=== PATIENT | female | born 1930 | race Caucasian/White ===

== ENCOUNTER 2018-11-03 12:58 | Inpatient (IN) | payer MEDICARE, OTHER | END 2018-11-07 17:50 | disposition home or self-care (01) | LOC: JER 12:58 → JERBED 15:54 → J5S 17:53 ==

== ENCOUNTER 2018-11-09 13:19 | Inpatient (IN) | payer MEDICARE, OTHER | END 2018-11-16 14:28 | LOC: JER 13:19 → JERBED 16:47 → J8W 18:47 ==

== ENCOUNTER 2018-12-14 13:07 | Inpatient (IN) | payer OTHER ==
--- NOTE | 2018-12-14 13:11 | PDOC ---
Rapid Medical Evaluation Time Seen by Provider: 12/14/18 13:10 Medical Evaluation: Allergies Allergy/AdvReac Type Severity Reaction Status Date / Time Penicillins Allergy Verified 12/15/11 13:09 aspirin AdvReac Vomiting Verified 12/15/11 13:09 12/14/18 13:10 I have performed a brief in-person evaluation of this patient. The patient presents with a chief complaint of: back pain with known compression fxs T-11 and L3 and CKD. Denies saddle anesthesia or urinary difficulties Pertinent physical exam findings: right flank tenderness. Abd SNTND. I have ordered the following: urine, labs, oxycodone The patient will proceed to the ED for further evaluation. 12/14/18 13:12 Discharge Disposition - Diagnosis Back pain - Referrals - Patient Instructions - Post Discharge Activity
[2018-12-14] MEDS ORDERED: oxyCODONE HCL 5 MG TABLET PO ONE (13:17)
--- NOTE | 2018-12-14 13:32 | PDOC ---
History of Present Illness - General Chief Complaint: Back Pain Stated Complaint: BACK PAIN HX OF COMPRESSION FX Time Seen by Provider: 12/14/18 13:10 - History of Present Illness Initial Comments: 12/14/18 14:36 88yo F hx chronic back pain, known compression fractures T11 and L3, CKD, HTN, anemia, Afib on elliquis, and ?multiple myeloma? sent by PCP Dr. Mckeon for admission for chronic back pain. Pt was discharged from here to rehab on . Pt had new diagnosis of multiple myeloma in last admission here and was referred to oncology and nephrology for further workup but pt did not go. When asked pt's daughter Carson (translating for pt), Carson states that pt was worked up for multiple myeloma but she was not diagnosed with it. In rehab, pt did PT and back pain was managed with Acetaminophen and Gabapentin. Daughter was concerned because pt still had back pain throughout rehab, so when pt was discharged from rehab today, she called PCP Dr Mckeon and was told to come here so she brought pt here straight from rehab. Pt states back pain is exactly the same as when she left here a month ago, not worse or better. Back pain is thoracic and lumbar, R>L. Pt walks with walker. Denies falls, trauma, new back pain, neck pain, abdominal pain, numbness or tingling, saddle anesthesia, urinary incontinence or retention, bowel incontinence or retention, weakness, fever, chills, fatigue, headache, dizziness, vision changes, shortness of breath , cough, chest pain, palpitations, leg swelling, blood in stool, diarrhea, constipation, nausea, vomiting, dysuria, hematuria, confusion. Past History - Past Medical History Allergies/Adverse Reactions: Allergies Allergy/AdvReac Type Severity Reaction Status Date / Time Penicillins Allergy Verified 12/14/18 13:14 aspirin AdvReac Vomiting Verified 12/14/18 13:14 Home Medications: Ambulatory Orders Pantoprazole Sodium 40 mg PO DAILY #30 tablet. 11/09/18 Acetaminophen [Tylenol .Regular Strength -] 650 mg PO Q6HPO PRN tablet Apixaban [Eliquis -] 2.5 mg PO BID tablet 11/16/18 Calcitonin-[place] [Miacalcin [place] -] 1 spray NS DAILY spray.pump 11/16/18 Gabapentin [Neurontin -] 100 mg PO TID capsule 11/16/18 Pantoprazole Sodium [Protonix] 40 mg PO DAILY 12/14/18 traMADol HCL [Ultram] 50 mg PO Q8H 12/14/18 Anemia: Yes (blood transfusions every 3wks) Cardiac Disorders: Yes COPD: No CHF: Yes Diabetes: No Dialysis: Yes (last episode one month ago) HTN: Yes Hypercholesterolemia: No Other medical history: compression fx - Surgical History Appendectomy: Yes Cholecystectomy: Yes - Reproductive History Cervical CA: No Dysfunctional Uterine Bleeding: No Ectopic : No Endometrial CA: No Polycystic Ovaries: No Tubal Ligation: No - Suicide/Smoking/Psychosocial Hx Smoking Status: No Smoking History: Never smoked Have you smoked in the past 12 months: No Number of Cigarettes Smoked Daily: 0 If you are a former smoker, when did you quit?: n Information on smoking cessation initiated: No Hx Alcohol Use: No Drug/Substance Use Hx: No Substance Use Type: None Hx Substance Use Treatment: No (occasional drinker) Review of Systems - Review of Systems Comments:: 12/14/18 14:36 Constitutional: Negative for chills, fever, fatigue. HENT: Negative for sore throat, rhinorrhea, congestion. Eyes: Negative for visual disturbance. Respiratory: Negative for shortness of breath, cough, and wheezing. Cardiovascular: Negative for chest pain, palpitations, and leg swelling. Gastrointestinal: Negative for abdominal pain, blood in stool, constipation, diarrhea, nausea, and vomiting. Genitourinary: Negative for dysuria, flank pain, and hematuria. Musculoskeletal: Positive for back pain, R>L. Negative for myalgias and neck pain. Skin: Negative for rash. Neurological: Negative for light-headedness, dizziness, syncope, weakness, numbness and headaches. Psychiatric/Behavioral: Negative for behavioral problems and confusion. *Physical Exam - Vital Signs Last Vital Signs Temp Pulse Resp BP Pulse Ox 98.4 F 82 19 107/42 L 97 12/14/18 13:12 12/14/18 13:12 12/14/18 13:12 12/14/18 13:12 12/14/18 13:12 - Physical Exam Comments: 12/14/18 14:36 Gen: Alert, NAD, comfortable-appearing. HEENT: PERRL, EOMI, MMM, NCAT. No conjunctival pallor. Sclera are non-icteric. CV: Regular rate and rhythm. No murmurs, rubs, or gallops. PULM: No resp distress. CTAB, no wheezes, rales, or rhonchi. ABD: soft, NT/ND, no rebound tenderness or guarding, +R CVA tenderness. BACK: No TTP of c/t/l-spine. No step-offs or deformities. MSK: No bony deformities. 2+ pulses in all extremities. NEURO: AAOx3. PERRL. CN 2-12 intact. 5/5 strength in all extremities. Sensation to light touch intact in all extremities. No abnormal nystagmus. EXTREMITIES: No cyanosis. No clubbing. +b/l edema. No calf tenderness. PSYCH: Normal mood and thought pattern. SKIN: Warm and dry. Normal capillary refill. No rashes. No jaundice. ED Treatment Course - LABORATORY CBC & Chemistry Diagram: 12/16/18 07:49 12/16/18 07:49 Medical Decision Making - Medical Decision Making 12/14/18 14:36 88yo F hx chronic back pain, known compression fractures T11 and L3, CKD, HTN, anemia, Afib on elliquis, and ?multiple myeloma? sent by PCP Dr. Mckeon for admission for chronic back pain. Pt was discharged from here to rehab on . Pt had new diagnosis of multiple myeloma in last admission here and was referred to oncology and nephrology for further workup but pt did not go. When asked pt's daughter Carson (translating for pt), Carson states that pt was worked up for multiple myeloma but she was not diagnosed with it. In rehab, pt did PT and back pain was managed with Acetaminophen and Gabapentin. Daughter was concerned because pt still had back pain throughout rehab, so when pt was discharged from rehab today, she called PCP Dr Mckeon and was told to come here so she brought pt here straight from rehab. Pt states back pain is exactly the same as when she left here a month ago, not worse or better. Back pain is thoracic and lumbar, R>L. Pt walks with walker. Denies falls, trauma, new back pain, neck pain, abdominal pain, numbness or tingling, saddle anesthesia, urinary incontinence or retention, bowel incontinence or retention, weakness, fever, chills, fatigue, headache, dizziness, vision changes, shortness of breath , cough, chest pain, palpitations, leg swelling, blood in stool, diarrhea, constipation, nausea, vomiting, dysuria, hematuria, confusion. Vital signs reviewed. Afebrile. BP 107/42 (hypotensive at baseline, last 11/16/18 80/48). +R CVA tenderness, neurologically intact. Oxycodone 5 given by RME. Pt states it helped a bit. Most likely chronic pain. No red flags for cauda equina, spinal abscess, new compression fx, AAA, AoD. Due to CVA tenderness, consider UTI/pyelo or renal stone and obtain UA/UC. Due to hx of anemia, check H/H. Due to hx CKD, check CMP. [facility] from [facility] reviewed. Of note, H/H 8.5/26.3 (last 8.1/24.4 on 11/15/18), Cr 4.2 (last 4.3 on 11/15/18). Pending CMP, UA/UC. Spoke with Dr. Mckeon - consult geospatial imagery intelligence analyst and admit to Dr. Mckeon after K and Na return. 12/14/18 14:43 CMP reviewed. K 4.2, Na [address] Mckeon. *DC/Admit/Observation/Transfer Diagnosis at time of Disposition: Back pain - Discharge Dispostion Condition at time of disposition: Stable Decision to Admit order: Yes - Referrals - Patient Instructions - Post Discharge Activity
[2018-12-14] MEDS ORDERED: oxyCODONE HCL 5 MG TABLET ONE (14:08)
[2018-12-14 14:11] LABS: BASO % 0.7 % (0-2.0); EOS % 1.7 % (0-4.5); HEMATOCRIT 26.3 % (32.4-45.2); HEMOGLOBIN 8.5 GM/dL (10.7-15.3); LYMPH % 33.7 % (8-40); MCH 31.4 pg (25.7-33.7); MCHC 32.4 g/dl (32.0-36.0); MEAN CELL VOLUME 96.8 fl (80-96); MEAN PLT VOLUME 7.8 fl (7.5-11.1); MONO % 9.2 % (3.8-10.2); NEUT % 54.7 % (42.8-82.8); PLATELET COUNT 152 K/MM3 (134-434); RBC 2.71 M/mm3 (3.60-5.2); RDW 22.5 % (11.6-15.6); WHITE BLOOD COUNT 7.7 K/mm3 (4.0-10.0)
[2018-12-14 14:41] LABS: ALBUMIN 3.6 g/dl (3.4-5.0); BILIRUBIN,TOTAL 0.5 mg/dL (0.2-1); BLOOD UREA NITROGEN 44.8 mg/dL (7-18); CALCIUM 9.4 mg/dL (8.5-10.1); CREATININE 4.2 mg/dL (0.55-1.3); POTASSIUM 4.2 mmol/L (3.5-5.1); TOT PROT 6.8 g/dl (6.4-8.2)
--- NOTE | 2018-12-14 14:56 | PDOC ---
Attending Attestation - Resident Resident Name: Hilary Jiang - ED Attending Attestation I have performed the following: I have examined & evaluated the patient, The case was reviewed & discussed with the resident, I agree w/resident's findings & plan, Exceptions are as noted - HPI HPI: 12/14/18 15:26 88y F hx of compersion fractures, ckd, htn, anemia, afib on eliquis, multiple myeloma, presents from rehab presents with persistent back pain. Pt was in the hospital recently and was dc to rehab but has been having persistent pain so was sent by PMD back to ED for pain management. Pt taking tylenol/gabapentin without significant improvement. Pt johan any fever/chills, n/v, numbness/ tingling/weakness, urinary or bowel incontinence, no recent falls or injuries. on exam, pt in n odistress back exam noted for mild ttp, w/o stepoffs abd exam soft nontender no red flags or signs of cord compression will admit per pmd for further pain control - Physicial Exam PE: 12/16/18 16:05 see above - Medical Decision Making 12/16/18 16:05 see above
[2018-12-14 17:48] VITALS: BMI 25.7
[2018-12-14 18:56] LABS: ANISOCYTOSIS 3+; MACROCYTOSIS 1+
[2018-12-14 18:57] LABS: PLATELET ESTIMATE ADEQUATE
[2018-12-14] MEDS: traMADol HCL 50 MG TABLET PO PRN (22:00)
[2018-12-14] MEDS: GABAPENTIN 100 MG CAPSULE (FP) PO SCH (22:00)
[2018-12-14] MEDS: APIXABAN 2.5 MG TABLET PO SCH (22:00)
[2018-12-14 22:49] LABS: EPI CELLS 5.7 /HPF (0-5/HPF); HYALINE CASTS 0 /lpf (0-8); URINE APPEARANCE CLOUDY; URINE BACTERIA 54.9 /hpf (NEGATIVE); URINE BILIRUBIN NEGATIVE (NEGATIVE); URINE COLOR YELLOW; URINE GLUCOSE (UA) 1+ (NEGATIVE); URINE KETONE NEGATIVE (NEGATIVE); URINE LEUK ESTERASE NEGATIVE (NEGATIVE); URINE NITRITE NEGATIVE (NEGATIVE); URINE PROTEIN 2+ (NEGATIVE); URINE RBC 2 /hpf (0-4); URINE UROBILINOGEN 0.2 mg/dL (0.2-1.0); URINE WBC 1 /hpf (0-5)
[2018-12-15] MEDS: traMADol HCL 50 MG TABLET PO PRN (06:02)
[2018-12-15] MEDS: GABAPENTIN 100 MG CAPSULE (FP) PO SCH ×3 (06:03→22:29)
[2018-12-15] MEDS ORDERED: ACETAMINOPHEN 325 MG TABLET (FP) PO PRN (09:10)
--- NOTE | 2018-12-15 09:10 | HP ---
Admitting History and Physical - Primary Care Physician PCP: Antoni Mckeon - Admission Chief Complaint: WORSENING ANEMIA/WEAKNESS History of Present Illness: 88 Y/O FEMALE ESRD NOT ON HD, HERE WITH WORSENING ANEMIA, SPINAL COMPRESSION FRACTURES, UNSTEADY GAIT, History Source: Medical Record - Past Medical History Cardiovascular: Yes: HTN Gastrointestinal: Yes: GERD Renal/: Yes: Renal Inusuff ...: No Heme/Onc: Yes: Anemia - Smoking History Smoking history: Never smoked Have you smoked in the past 12 months: No Aproximately how many cigarettes per day: 0 If you are a former smoker, when did you quit?: n - Alcohol/Substance Use Hx Alcohol Use: No Home Medications - Allergies Allergies/Adverse Reactions: Allergies Allergy/AdvReac Type Severity Reaction Status Date / Time Penicillins Allergy Verified 12/14/18 13:14 aspirin AdvReac Vomiting Verified 12/14/18 13:14 - Home Medications Home Medications: Ambulatory Orders Pantoprazole Sodium 40 mg PO DAILY #30 tablet. 11/09/18 Acetaminophen [Tylenol .Regular Strength -] 650 mg PO Q6HPO PRN tablet Apixaban [Eliquis -] 2.5 mg PO BID tablet 11/16/18 Calcitonin-[place] [Miacalcin [place] -] 1 spray NS DAILY spray.pump 11/16/18 Gabapentin [Neurontin -] 100 mg PO TID capsule 11/16/18 Pantoprazole Sodium [Protonix] 40 mg PO DAILY 12/14/18 traMADol HCL [Ultram] 50 mg PO Q8H 12/14/18 Review of Systems - Review of Systems Constitutional: reports: Lethargy, Weakness Eyes: reports: No Symptoms HENT: reports: No Symptoms Neck: reports: No Symptoms Cardiovascular: reports: No Symptoms Respiratory: reports: No Symptoms Gastrointestinal: reports: No Symptoms Genitourinary: reports: No Symptoms Musculoskeletal: reports: Back Pain, Decreased ROM, Joint Pain, Muscle Pain, Muscle Weakness Integumentary: reports: Rash Neurological: reports: Pre-Existing Deficit, Weakness Physical Examination Vital Signs: Vital Signs Temperature 97.7 F 12/15/18 05:38 Pulse Rate 69 12/15/18 05:38 Respiratory Rate 18 12/15/18 05:38 Blood Pressure 109/50 L 12/15/18 05:38 O2 Sat by Pulse Oximetry (%) 95 12/14/18 21:00 Constitutional: Yes: Moderate Distress Cardiovascular: Yes: Regular Rate and Rhythm Respiratory: Yes: WNL Gastrointestinal: Yes: Soft Renal/: Yes: Other Musculoskeletal: Yes: Back Pain, Muscle Pain, Muscle Weakness Edema: Yes Edema: LLE: 1+, RLE: 1+ Peripheral Pulses WNL: Yes Integumentary: Yes: WNL Wound/Incision: Yes: Clean/Dry Neurological: Yes: Pre-Existing Deficit, Unsteady Gait, Weakness ...Motor Strength: LLE, RLE Psychiatric: Yes: Other Labs: CBC, BMP 12/14/18 13:49 12/14/18 13:49 Problem List - Problems (1) Back pain Code(s): M54.9 - DORSALGIA, UNSPECIFIED Qualifiers: (2) Anemia Code(s): D64.9 - ANEMIA, UNSPECIFIED (3) Chronic kidney disease Code(s): N18.9 - CHRONIC KIDNEY DISEASE, UNSPECIFIED (4) Compression fracture Code(s): IBR7308 - (5) Compression fracture of body of thoracic vertebra Code(s): S22.000A - WEDGE COMPRESSION FRACTURE OF UNSP THORACIC VERTEBRA, INIT (6) Intractable back pain Code(s): M54.9 - DORSALGIA, UNSPECIFIED (7) Osteopenia Code(s): M85.80 - OT DISRD OF BONE DENSITY AND STRUCTURE, UNSPECIFIED SITE (8) Paroxysmal A-fib Code(s): I48.0 - PAROXYSMAL ATRIAL FIBRILLATION Assessment/Plan START CALCITONIN NASAL SPRAY FOR PAIN/COMPRESSION FRACTURE REPAIR TRAMADOL PRN PROCRIT SQ RENAL EVAL PT EVAL OOB TO CHAIR
[2018-12-15] MEDS ORDERED: PT OWN MED DRAWER 7, Y5N ONE ×4 (09:34→22:25)
[2018-12-15] MEDS: APIXABAN 2.5 MG TABLET PO SCH ×2 (09:37→22:29)
[2018-12-15] MEDS: LIDOCAINE 5% TOPICAL PATCH TP SCH (09:37)
[2018-12-15] MEDS: PANTOPRAZOLE 40 MG TABLET (FP) PO SCH (09:37)
[2018-12-15] MEDS: CALCIUM 250MG/VIT-D 125 UNITS 1 COMBO TABLET PO SCH ×2 (12:33→22:29)
[2018-12-15] MEDS: CALCITONIN - SALMON SYNTHETIC 200 UNITS/SPRAY NS SCH (12:34)
--- NOTE | 2018-12-15 14:05 | CONSULT ---
Consult Consult Specialty:: Nephrology Reason for Consultation:: CKD - History of Present Illness Chief Complaint: weakness History of Present Illness: Pt is an 88 year old female with pmhx of ckd, anemia, spinal fractures and unsteady gait who was sent in for weakness and worsening anemia. She complains of back pain and difficulty walking. She has appetite. She denies dysuria or hematuria. She denies fevers or chills. SHe denies shortness of breath. - History Source History Provided By: Patient, Medical Record - Past Medical History Cardio/Vascular: Yes: HTN Gastrointestinal: Yes: GERD Renal/: Yes: Renal Inusuff ...: No - Alcohol/Substance Use Hx Alcohol Use: No - Smoking History Smoking history: Never smoked Have you smoked in the past 12 months: No Aproximately how many cigarettes per day: 0 If you are a former smoker, when did you quit?: n Home Medications - Allergies Allergies/Adverse Reactions: Allergies Allergy/AdvReac Type Severity Reaction Status Date / Time Penicillins Allergy Verified 12/14/18 13:14 aspirin AdvReac Vomiting Verified 12/14/18 13:14 - Home Medications Home Medications: Ambulatory Orders Pantoprazole Sodium 40 mg PO DAILY #30 tablet. 11/09/18 Acetaminophen [Tylenol .Regular Strength -] 650 mg PO Q6HPO PRN tablet Apixaban [Eliquis -] 2.5 mg PO BID tablet 11/16/18 Calcitonin-[place] [Miacalcin [place] -] 1 spray NS DAILY spray.pump 11/16/18 Gabapentin [Neurontin -] 100 mg PO TID capsule 11/16/18 Pantoprazole Sodium [Protonix] 40 mg PO DAILY 12/14/18 traMADol HCL [Ultram] 50 mg PO Q8H 12/14/18 Family Disease History - Family Disease History Family History: Denies Review of Systems - Review of Systems Constitutional: reports: Malaise Eyes: reports: No Symptoms HENT: reports: No Symptoms Neck: reports: No Symptoms Cardiovascular: reports: No Symptoms. denies: Edema Respiratory: reports: SOB on Exertion Gastrointestinal: reports: No Symptoms Genitourinary: reports: No Symptoms Musculoskeletal: reports: Back Pain Integumentary: reports: No Symptoms Neurological: reports: No Symptoms Endocrine: reports: No Symptoms Hematology/Lymphatic: reports: No Symptoms Psychiatric: reports: No Symptoms Physical Exam Vital Signs: Vital Signs Temperature 97.7 F 12/15/18 05:38 Pulse Rate 94 H 12/15/18 10:00 Respiratory Rate 20 12/15/18 10:00 Blood Pressure 103/53 L 12/15/18 10:00 O2 Sat by Pulse Oximetry (%) 95 12/14/18 21:00 Constitutional: Yes: Calm Eyes: Yes: Conjunctiva Clear HENT: Yes: Atraumatic Neck: Yes: Supple Cardiovascular: Yes: S1, S2 Respiratory: Yes: CTA Bilaterally Gastrointestinal: Yes: Soft Renal/: Yes: WNL Musculoskeletal: Yes: Back Pain Edema: No Neurological: Yes: Oriented Psychiatric: Yes: Oriented Labs: CBC, BMP 12/14/18 13:49 12/14/18 13:49 Laboratory Tests 11/30/11 11/04/18 11/11/18 06:00 09:58 07:15 WBC Hgb Potassium BUN Creatinine ALL Screen Negative c-ANCA <1:20 Proteinase 3 (PR3) <3.5 p-ANCA <1:20 Atypical p-ANCA <1:20 Myeloperoxidase Ab <9.0 Double Strand DNA Ab <1 Complement C3 144 Free Lambda LC, Quant 42226.6 H 12/14/18 12/14/18 13:49 13:49 WBC 7.7 Hgb 8.5 L Potassium 4.2 BUN 44.8 H Creatinine 4.2 H ALL Screen c-ANCA Proteinase 3 (PR3) p-ANCA Atypical p-ANCA Myeloperoxidase Ab Double Strand DNA Ab Complement C3 Free Lambda LC, Quant Problem List - Problems (1) Back pain Code(s): M54.9 - DORSALGIA, UNSPECIFIED Qualifiers: (2) Anemia Code(s): D64.9 - ANEMIA, UNSPECIFIED (3) Chronic kidney disease Code(s): N18.9 - CHRONIC KIDNEY DISEASE, UNSPECIFIED (4) Compression fracture Code(s): QKL7996 - Assessment/Plan Current Medications Generic Name Dose Route Start Last Admin Trade Name Freq PRN Reason Stop Dose Admin Acetaminophen 650 mg 12/15/18 09:10 Tylenol - PO Q6H PRN FEVER Acetaminophen 1,000 mg 12/15/18 09:10 Ofirmev Injection - IVPB Q6H PRN PAIN LEVEL 6-10 Amitriptyline HCl 10 mg 12/15/18 22:00 Elavil - PO HS HARRY Apixaban 2.5 mg 12/14/18 22:00 12/15/18 09:37 Eliquis - PO 2.5 mg BID HARRY Administration Calcitonin 1 spray 12/15/18 10:00 12/15/18 12:34 Miacalcin [place] - NS 1 spray DAILY HARRY Administration Calcium/Vitamin D 1 tab 12/15/18 10:00 12/15/18 12:33 Oscal 250 Mg+D - PO 1 tab BID HARRY Administration Gabapentin 100 mg 12/14/18 22:00 12/15/18 06:03 Neurontin - PO 100 mg TID HARRY Administration Lidocaine 1 patch 12/15/18 10:00 12/15/18 09:37 Lidoderm Patch - TP 1 patch DAILY HARRY Administration Miscellaneous 1 each 12/15/18 22:00 Lidoderm Patch Removal MC DAILY@2200 HARRY Pantoprazole Sodium 40 mg 12/15/18 10:00 12/15/18 09:37 Protonix - PO 40 mg DAILY HARRY Administration Laboratory Tests 11/11/18 07:15 Free [place] LC, Quant 18.9 Free Lambda LC, Quant 63142.6 H Free [place]/Lambda Ratio 0.00 L Impression 1. CKD 2. anemia 3. HTN 4. GERD 5. fatigue 6. back pain r/o compression fracture 7. r/o myeloma - elevated lambda chains Plan - will give procrit - renal function stable - no indication for HD - heme follow up for elevated lambda, r/o myeloma - pain control/rehab - avoid nsaids - discussed with family - renal diet - will follow prn
[2018-12-15] MEDS ORDERED: EPOETIN ALFA 10,000 UNIT/1 ML VIAL SQ ONE (14:15)
[2018-12-15] MEDS: AMITRIPTYLINE HCL 10 MG TABLET (FP) PO SCH (22:29)
[2018-12-15] MEDS: LIDOCAINE PATCH REMOVAL MC SCH (22:31)
[2018-12-16] MEDS: GABAPENTIN 100 MG CAPSULE (FP) PO SCH ×3 (07:04→21:18)
[2018-12-16 08:12] LABS: HEMATOCRIT 22.9 % (32.4-45.2); HEMOGLOBIN 7.5 GM/dL (10.7-15.3); MCH 31.6 pg (25.7-33.7); MCHC 32.8 g/dl (32.0-36.0); MEAN CELL VOLUME 96.6 fl (80-96); PLATELET COUNT 128 K/MM3 (134-434); RBC 2.38 M/mm3 (3.60-5.2); RDW 23.2 % (11.6-15.6); WHITE BLOOD COUNT 4.6 K/mm3 (4.0-10.0)
[2018-12-16 08:24] LABS: CALCIUM 9.1 mg/dL (8.5-10.1); CREATININE 4.3 mg/dL (0.55-1.3); POTASSIUM 3.6 mmol/L (3.5-5.1)
[2018-12-16 08:28] LABS: IRON SERUM 121 ug/dL (50-175); TOTAL IRON BINDING CAPACITY 171 ug/dL (250-450)
[2018-12-16] MEDS ORDERED: PT OWN MED DRAWER 7, Y5N ONE (09:08)
[2018-12-16] MEDS: CALCIUM 250MG/VIT-D 125 UNITS 1 COMBO TABLET PO SCH ×2 (09:12→21:54)
[2018-12-16] MEDS: LIDOCAINE 5% TOPICAL PATCH TP SCH (09:12)
[2018-12-16] MEDS: PANTOPRAZOLE 40 MG TABLET (FP) PO SCH (09:12)
[2018-12-16] MEDS: APIXABAN 2.5 MG TABLET PO SCH ×2 (09:12→21:18)
[2018-12-16] MEDS: CALCITONIN - SALMON SYNTHETIC 200 UNITS/SPRAY NS SCH (09:19)
--- NOTE | 2018-12-16 11:29 | PN ---
Progress Note, Physician - Current Medication List Current Medications: Active Medications Acetaminophen (Tylenol -) 650 mg PO Q6H PRN PRN Reason: FEVER Acetaminophen (Ofirmev Injection -) 1,000 mg IVPB Q6H PRN PRN Reason: PAIN LEVEL 6-10 Amitriptyline HCl (Elavil -) 10 mg PO HS [facility] Last Admin: 12/15/18 22:29 Dose: 10 mg Apixaban (Eliquis -) 2.5 mg PO BID [facility] Last Admin: 12/16/18 09:12 Dose: 2.5 mg Calcitonin (Miacalcin [place] -) 1 spray NS DAILY [facility] Last Admin: 12/16/18 09:19 Dose: 1 spray Calcium/Vitamin D (Oscal 250 Mg+D -) 1 tab PO BID [facility] Last Admin: 12/16/18 09:12 Dose: 1 tab Gabapentin (Neurontin -) 100 mg PO TID [facility] Last Admin: 12/16/18 07:04 Dose: 100 mg Lidocaine (Lidoderm Patch -) 1 patch TP DAILY [facility] Last Admin: 12/16/18 09:12 Dose: 1 patch Miscellaneous (Lidoderm Patch Removal) 1 each MC DAILY@2200 [facility] Last Admin: 12/15/18 22:31 Dose: Not Given Pantoprazole Sodium (Protonix -) 40 mg PO DAILY [facility] Last Admin: 12/16/18 09:12 Dose: 40 mg - Objective Vital Signs: Vital Signs Temperature 98.1 F 12/16/18 08:21 Pulse Rate 64 12/16/18 08:21 Respiratory Rate 20 12/16/18 08:21 Blood Pressure 112/60 12/16/18 08:21 O2 Sat by Pulse Oximetry (%) 95 12/14/18 21:00 Cardiovascular: Yes: Regular Rate and Rhythm, Murmur Respiratory: Yes: Regular Gastrointestinal: Yes: Normal Bowel Sounds, Soft Labs: CBC, BMP 12/16/18 07:49 12/16/18 07:49 Problem List - Problems (1) Anemia Assessment/Plan: TRANSFUSE PRBC ON EPOGEN W/U--R/O MYELOMA' HEM Code(s): D64.9 - ANEMIA, UNSPECIFIED (2) Chronic kidney disease Assessment/Plan: RENAL ON BOARD Code(s): N18.9 - CHRONIC KIDNEY DISEASE, UNSPECIFIED (3) Compression fracture of body of thoracic vertebra Assessment/Plan: PAIN CONTROL Code(s): S22.000A - WEDGE COMPRESSION FRACTURE OF UNSP THORACIC VERTEBRA, INIT (4) Paroxysmal A-fib Code(s): I48.0 - PAROXYSMAL ATRIAL FIBRILLATION
[2018-12-16] MEDS: AMITRIPTYLINE HCL 10 MG TABLET (FP) PO SCH (21:18)
[2018-12-16] MEDS: LIDOCAINE PATCH REMOVAL MC SCH (21:18)
[2018-12-16] MEDS: ACETAMINOPHEN 1000 MG/100 ML VIAL (NON FORMULARY) IVPB PRN (22:04)
--- NOTE | 2018-12-16 23:15 | CONSULT ---
Consult Consult Specialty:: Heme Referred by:: Dr. Mckeon Reason for Consultation:: eval for myeloma - History of Present Illness Chief Complaint: back pain History of Present Illness: 88F with AF, on Eliquis, CKD and chronic transfusion dependent anemia admitted with lower back pain. Pt was admitted for the same in early 11/2018. Thoracic spine MRI showed acute/ subacute compression fx of T12 and L1. Cord signal was normal. Bone marrow signal was reported to be diffusely heterogeneous. Per family, pt recently came from [place] where she was periodically getting blood transfusions (about once per month) and iron injections. She has also been on epogen. In 2011, she was evaluated for multiple myeloma by Dr. Cline (records not available except for SPEP positive for free lambda). Per daughter, multiple myeloma was ruled out with bone marrow bx. SPEP on 11/13 with 0.5 g m-spike (free lambda). Free serum lambda: [id number], free kappa 18.9. UPEP: free lambda. Also with CT findings of increased liver density , ?iron deposition. Ferritin 1084, sat 70% Pt was evaluated by hematology on last admission and declined bone marrow bx. Did not f/u as outpatient. - History Source History Provided By: Patient, Family Member - Past Medical History Cardio/Vascular: Yes: HTN Gastrointestinal: Yes: GERD Renal/: Yes: Renal Inusuff ...: No - Alcohol/Substance Use Hx Alcohol Use: No - Smoking History Smoking history: Never smoked Have you smoked in the past 12 months: No Aproximately how many cigarettes per day: 0 If you are a former smoker, when did you quit?: n Home Medications - Allergies Allergies/Adverse Reactions: Allergies Allergy/AdvReac Type Severity Reaction Status Date / Time Penicillins Allergy Verified 12/14/18 13:14 aspirin AdvReac Vomiting Verified 12/14/18 13:14 - Home Medications Home Medications: Ambulatory Orders Pantoprazole Sodium 40 mg PO DAILY #30 tablet. 11/09/18 Acetaminophen [Tylenol .Regular Strength -] 650 mg PO Q6HPO PRN tablet Apixaban [Eliquis -] 2.5 mg PO BID tablet 11/16/18 Calcitonin-[place] [Miacalcin [place] -] 1 spray NS DAILY spray.pump 11/16/18 Gabapentin [Neurontin -] 100 mg PO TID capsule 11/16/18 Pantoprazole Sodium [Protonix] 40 mg PO DAILY 12/14/18 traMADol HCL [Ultram] 50 mg PO Q8H 12/14/18 Review of Systems - Review of Systems Constitutional: reports: No Symptoms Cardiovascular: reports: No Symptoms Respiratory: reports: No Symptoms Musculoskeletal: reports: Back Pain Physical Exam Vital Signs: Vital Signs Temperature 98.2 F 12/16/18 22:54 Pulse Rate 72 12/16/18 22:54 Respiratory Rate 20 12/16/18 22:54 Blood Pressure 108/63 12/16/18 22:54 O2 Sat by Pulse Oximetry (%) 95 12/14/18 21:00 Constitutional: Yes: Mild Distress Eyes: Yes: Conjunctiva Clear Cardiovascular: Yes: Regular Rate and Rhythm Respiratory: Yes: Regular, CTA Bilaterally Gastrointestinal: Yes: Normal Bowel Sounds. No: Distention, Tenderness Edema: No Labs: CBC, BMP 12/16/18 07:49 12/16/18 07:49 Assessment/Plan 88F with AF, on Eliquis, CKD V (stable), chronic transfusion dependent anemia, compression fx of T12, L1 presents with persistent back pain. In 11/13/2018 SPEP with 0.5 g m-spike (free lambda), and free serum lambda [id number]. Findings are very concerning for multiple myeloma. Had an extensive discussion with patient' s daughter, at bedside, and explained that anemia, bone fractures, and renal failure are likely related to possible MM and that there's treatment available even at pt's age. Discussed bone marrow bx as next step. Pt will address with rest of the family and decide. Will f/u.
[2018-12-17] MEDS: GABAPENTIN 100 MG CAPSULE (FP) PO SCH ×3 (06:30→22:00)
[2018-12-17] MEDS: LIDOCAINE 5% TOPICAL PATCH TP SCH (09:16)
[2018-12-17] MEDS: PANTOPRAZOLE 40 MG TABLET (FP) PO SCH (09:16)
[2018-12-17] MEDS: APIXABAN 2.5 MG TABLET PO SCH ×2 (09:16→22:00)
[2018-12-17] MEDS: CALCIUM 250MG/VIT-D 125 UNITS 1 COMBO TABLET PO SCH ×2 (09:17→22:01)
[2018-12-17] MEDS: CALCITONIN - SALMON SYNTHETIC 200 UNITS/SPRAY NS SCH (09:19)
[2018-12-17 11:05] LABS: BASO % 0.7 % (0-2.0); EOS % 1.2 % (0-4.5); HEMATOCRIT 23.1 % (32.4-45.2); HEMOGLOBIN 7.5 GM/dL (10.7-15.3); MCH 31.3 pg (25.7-33.7); MCHC 32.5 g/dl (32.0-36.0); MEAN CELL VOLUME 96.3 fl (80-96); MONO % 9.2 % (3.8-10.2); NEUT % 60.9 % (42.8-82.8); PLATELET COUNT 123 K/MM3 (134-434); RDW 22.5 % (11.6-15.6); WHITE BLOOD COUNT 4.8 K/mm3 (4.0-10.0)
[2018-12-17 11:18] LABS: ALBUMIN 3.1 g/dl (3.4-5.0); BILIRUBIN,TOTAL 0.4 mg/dL (0.2-1); BLOOD UREA NITROGEN 45.6 mg/dL (7-18); CALCIUM 8.9 mg/dL (8.5-10.1); CREATININE 4.2 mg/dL (0.55-1.3); POTASSIUM 3.3 mmol/L (3.5-5.1); TOT PROT 5.9 g/dl (6.4-8.2)
[2018-12-17] MEDS ORDERED: FUROSEMIDE 40 MG/4 ML INJECTABLE VIAL IVPUSH ONE (11:50)
[2018-12-17] MEDS ORDERED: POTASSIUM CHLORIDE TABS 20 MEQ TABLET.ER (FP) PO ONE (11:50)
--- NOTE | 2018-12-17 11:53 | PN ---
Progress Note, Physician - Current Medication List Current Medications: Active Medications Acetaminophen (Tylenol -) 650 mg PO Q6H PRN PRN Reason: FEVER Acetaminophen (Ofirmev Injection -) 1,000 mg IVPB Q6H PRN PRN Reason: PAIN LEVEL 6-10 Amitriptyline HCl (Elavil -) 10 mg PO HS [facility] Last Admin: 12/16/18 21:18 Dose: 10 mg Apixaban (Eliquis -) 2.5 mg PO BID [facility] Last Admin: 12/17/18 09:16 Dose: 2.5 mg Calcitonin (Miacalcin [place] -) 1 spray NS DAILY [facility] Last Admin: 12/17/18 09:19 Dose: 1 spray Calcium/Vitamin D (Oscal 250 Mg+D -) 1 tab PO BID [facility] Last Admin: 12/17/18 09:17 Dose: 1 tab Gabapentin (Neurontin -) 100 mg PO TID [facility] Last Admin: 12/17/18 06:30 Dose: Not Given Lidocaine (Lidoderm Patch -) 1 patch TP DAILY [facility] Last Admin: 12/17/18 09:16 Dose: 1 patch Miscellaneous (Lidoderm Patch Removal) 1 each MC DAILY@2200 [facility] Last Admin: 12/16/18 21:18 Dose: 1 each Pantoprazole Sodium (Protonix -) 40 mg PO DAILY [facility] Last Admin: 12/17/18 09:16 Dose: 40 mg - Objective Vital Signs: Vital Signs Temperature 98.1 F 12/17/18 05:00 Pulse Rate 109 H 12/17/18 05:00 Respiratory Rate 20 12/16/18 22:54 Blood Pressure 144/67 12/17/18 05:00 O2 Sat by Pulse Oximetry (%) 95 12/14/18 21:00 Cardiovascular: Yes: S1, S2 Respiratory: Yes: Regular, CTA Bilaterally Gastrointestinal: Yes: Normal Bowel Sounds, Soft Labs: CBC, BMP 12/17/18 10:15 12/17/18 10:15 Problem List - Problems (1) Anemia Assessment/Plan: TRANSFUSE PRBC ON EPOGEN W/U--R/O MYELOMA' HEM noted Code(s): D64.9 - ANEMIA, UNSPECIFIED (2) Chronic kidney disease Assessment/Plan: RENAL ON BOARD Code(s): N18.9 - CHRONIC KIDNEY DISEASE, UNSPECIFIED (3) Compression fracture of body of thoracic vertebra Assessment/Plan: PAIN CONTROL Code(s): S22.000A - WEDGE COMPRESSION FRACTURE OF UNSP THORACIC VERTEBRA, INIT (4) Paroxysmal A-fib Code(s): I48.0 - PAROXYSMAL ATRIAL FIBRILLATION (5) Confusion Assessment/Plan: ct neuro Code(s): R41.0 - DISORIENTATION, UNSPECIFIED
[2018-12-17 12:41] LABS: TEAR DROP CELLS 1+
[2018-12-17 12:42] LABS: OVALOCYTE 1+; PLATELET ESTIMATE DECREASED
--- NOTE | 2018-12-17 15:30 | CON.NEURO ---
Consult - Past Medical History Cardio/Vascular: Yes: HTN Gastrointestinal: Yes: GERD Renal/: Yes: Renal Inusuff ...: No - Alcohol/Substance Use Hx Alcohol Use: No - Smoking History Smoking history: Never smoked Have you smoked in the past 12 months: No Aproximately how many cigarettes per day: 0 If you are a former smoker, when did you quit?: n Home Medications - Allergies Allergies/Adverse Reactions: Allergies Allergy/AdvReac Type Severity Reaction Status Date / Time Penicillins Allergy Verified 12/14/18 13:14 aspirin AdvReac Vomiting Verified 12/14/18 13:14 - Home Medications Home Medications: Ambulatory Orders Pantoprazole Sodium 40 mg PO DAILY #30 tablet. 11/09/18 Acetaminophen [Tylenol .Regular Strength -] 650 mg PO Q6HPO PRN tablet Apixaban [Eliquis -] 2.5 mg PO BID tablet 11/16/18 Calcitonin-[place]arr[place] [Miacalcin [place] -] 1 spray NS DAILY spray.pump 11/16/18 Gabapentin [Neurontin -] 100 mg PO TID capsule 11/16/18 Pantoprazole Sodium [Protonix] 40 mg PO DAILY 12/14/18 traMADol HCL [Ultram] 50 mg PO Q8H 12/14/18 Physical Exam-Neuro Vital Signs: Vital Signs Temperature 98.1 F 12/17/18 13:28 Pulse Rate 126 H 12/17/18 13:28 Respiratory Rate 20 12/17/18 13:28 Blood Pressure 117/65 12/17/18 13:28 O2 Sat by Pulse Oximetry (%) 95 12/14/18 21:00 Labs: CBC, BMP 12/17/18 10:15 12/17/18 10:15 Assessment/Plan cc Confusion HPI 88 year old female history of Reflux, HTN,Anemia,mUltiple myeloma, Atrial Fibrillation on eliquis. Patient presented for confusion following ingestion of ultram. She was given ultram for flank/back pain. Patient is back to her normal self. She tend to become confused when family go away. patient otherwise able to function at home. She denies any headahce, fever or any other focal neurological symptoms PMH as above Allergies/Adverse Reactions: Allergies Allergy/AdvReac Type Severity Reaction Status Date / Time Penicillins Allergy Verified 12/14/18 13:14 aspirin AdvReac Vomiting Verified 12/14/18 13:14 - Home Medications Home Medications: Ambulatory Orders Pantoprazole Sodium 40 mg PO DAILY #30 tablet. 11/09/18 Acetaminophen [Tylenol .Regular Strength -] 650 mg PO Q6HPO PRN tablet Apixaban [Eliquis -] 2.5 mg PO BID tablet 11/16/18 Calcitonin-[place] [Miacalcin [place] -] 1 spray NS DAILY spray.pump 11/16/18 Gabapentin [Neurontin -] 100 mg PO TID capsule 11/16/18 Pantoprazole Sodium [Protonix] 40 mg PO DAILY 12/14/18 traMADol HCL [Ultram] 50 mg PO Q8H 12/14/18 ROS, FH, SH reviewed in chart NEUROLOGICAL EXAMINATION Alert oriented x 3, speech is normal, neck is supple VSS eomi, pupils reactive no face asymmetry moving all ext sensation is normal reflex are diminished ct head could not be done Assessment/Plan 88 year old female history of atrial fibrillation , htn came with confusion due to ultram ingestion. Patient is back to [facility]. 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 Plan: No further suggestion - watch clinically for now - outpatient follow up brain imaging is not necessary Thanking you so much Venkat Ambriz MD
--- NOTE | 2018-12-17 20:33 | PN ---
Progress Note, Physician History of Present Illness: No new events. Per son at bedside, have not yet decided about bone marrow bx - Current Medication List Current Medications: Active Medications Acetaminophen (Tylenol -) 650 mg PO Q6H PRN PRN Reason: FEVER Acetaminophen (Ofirmev Injection -) 1,000 mg IVPB Q6H PRN PRN Reason: PAIN LEVEL 6-10 Amitriptyline HCl (Elavil -) 10 mg PO HS [facility] Last Admin: 12/16/18 21:18 Dose: 10 mg Apixaban (Eliquis -) 2.5 mg PO BID [facility] Last Admin: 12/17/18 09:16 Dose: 2.5 mg Calcitonin (Miacalcin [place] -) 1 spray NS DAILY [facility] Last Admin: 12/17/18 09:19 Dose: 1 spray Calcium/Vitamin D (Oscal 250 Mg+D -) 1 tab PO BID [facility] Last Admin: 12/17/18 09:17 Dose: 1 tab Gabapentin (Neurontin -) 100 mg PO TID [facility] Last Admin: 12/17/18 13:16 Dose: 100 mg Lidocaine (Lidoderm Patch -) 1 patch TP DAILY [facility] Last Admin: 12/17/18 09:16 Dose: 1 patch Miscellaneous (Lidoderm Patch Removal) 1 each MC DAILY@2200 [facility] Last Admin: 12/16/18 21:18 Dose: 1 each Pantoprazole Sodium (Protonix -) 40 mg PO DAILY [facility] Last Admin: 12/17/18 09:16 Dose: 40 mg - Objective Vital Signs: Vital Signs Temperature 98.1 F 12/17/18 13:28 Pulse Rate 126 H 12/17/18 13:28 Respiratory Rate 20 12/17/18 13:28 Blood Pressure 117/65 12/17/18 13:28 O2 Sat by Pulse Oximetry (%) 95 12/14/18 21:00 Constitutional: Yes: No Distress Eyes: Yes: Conjunctiva Clear Gastrointestinal: Yes: Soft. No: Distention, Tenderness Edema: No Neurological: Yes: WNL, Alert. No: Paresthesia ...Motor Strength: WNL Labs: CBC, BMP 12/17/18 10:15 12/17/18 10:15 Assessment/Plan 88F with AF, on Eliquis, CKD V (stable), chronic transfusion dependent anemia, compression fx of T12, L1 presents with persistent back pain. In 11/13/2018 SPEP with 0.5 g m-spike (free lambda), and free serum lambda [id number]. Findings are very concerning for multiple myeloma. Had an extensive discussion with patient' s daughter, at bedside, and explained that anemia, bone fractures, and renal failure are likely related to possible MM and that there's treatment available even at pt's age. Discussed bone marrow bx as next step. Awaiting decision from family. Will f/u.
[2018-12-17] MEDS: LIDOCAINE PATCH REMOVAL MC SCH (22:00)
[2018-12-17] MEDS: AMITRIPTYLINE HCL 10 MG TABLET (FP) PO SCH (22:00)
[2018-12-18 01:24] LABS: HEMATOCRIT 26.6 % (32.4-45.2); HEMOGLOBIN 8.9 GM/dL (10.7-15.3); MCHC 33.5 g/dl (32.0-36.0); MEAN CELL VOLUME 92.4 fl (80-96); MEAN PLT VOLUME 7.7 fl (7.5-11.1); PLATELET COUNT 106 K/MM3 (134-434); RBC 2.88 M/mm3 (3.60-5.2); RDW 21.9 % (11.6-15.6); WHITE BLOOD COUNT 4.9 K/mm3 (4.0-10.0)
[2018-12-18] MEDS: GABAPENTIN 100 MG CAPSULE (FP) PO SCH ×3 (06:42→22:27)
[2018-12-18 08:01] LABS: BASO % 0.4 % (0-2.0); EOS % 1.4 % (0-4.5); HEMATOCRIT 29.6 % (32.4-45.2); HEMOGLOBIN 9.7 GM/dL (10.7-15.3); LYMPH % 33.6 % (8-40); MCH 31.2 pg (25.7-33.7); MCHC 32.9 g/dl (32.0-36.0); MEAN CELL VOLUME 94.9 fl (80-96); MEAN PLT VOLUME 8.2 fl (7.5-11.1); MONO % 9.9 % (3.8-10.2); NEUT % 54.7 % (42.8-82.8); PLATELET COUNT 106 K/MM3 (134-434); RBC 3.12 M/mm3 (3.60-5.2); RDW 22.7 % (11.6-15.6); WHITE BLOOD COUNT 5.2 K/mm3 (4.0-10.0)
[2018-12-18 08:04] LABS: BILIRUBIN,TOTAL 0.6 mg/dL (0.2-1); BLOOD UREA NITROGEN 41.6 mg/dL (7-18); CREATININE 4.1 mg/dL (0.55-1.3); POTASSIUM 4.1 mmol/L (3.5-5.1); TOT PROT 5.7 g/dl (6.4-8.2)
--- NOTE | 2018-12-18 09:15 | PN ---
Progress Note (short form) - Note Progress Note: 88 year old female history of Reflux, HTN,Anemia,mUltiple myeloma, Atrial Fibrillation on eliquis. Patient presented for confusion following ingestion of ultram. She was given ultram for flank/back pain. Patient is back to her normal self. She tend to become confused when family go away. patient otherwise able to function at home. She denies any headahce, fever or any other focal neurological symptoms. Paitent is feeling better PMH as above NEUROLOGICAL EXAMINATION Alert oriented x 3, speech is normal, neck is supple VSS eomi, pupils reactive no face asymmetry moving all ext sensation is normal reflex are diminished ct head could not be done Assessment/Plan 88 year old female history of atrial fibrillation , htn came with confusion due to ultram ingestion. Patient is back to [facility]. She may have mild cognitive dysfunction, can be evaluated further as outpatient. Plan: No further suggestion - watch clinically for now - outpatient follow up brain imaging is not necessary, if she cant tolerate Thanking you so much Venkat Ambriz MD
[2018-12-18 10:03] LABS: ANISOCYTOSIS 1+; MACROCYTOSIS 1+; OVALOCYTE 1+; PLATELET ESTIMATE DECREASED
--- NOTE | 2018-12-18 11:06 | PN ---
Progress Note, Physician Chief Complaint: Anemia Spinal Compression Fracture History of Present Illness: Previous noted and events reviewed awake and alert NAD Hg 9.7 complain of back pain - Current Medication List Current Medications: Active Medications Acetaminophen (Tylenol -) 650 mg PO Q6H PRN PRN Reason: FEVER Acetaminophen (Ofirmev Injection -) 1,000 mg IVPB Q6H PRN PRN Reason: PAIN LEVEL 6-10 Amitriptyline HCl (Elavil -) 10 mg PO HS [facility] Last Admin: 12/17/18 22:00 Dose: 10 mg Apixaban (Eliquis -) 2.5 mg PO BID [facility] Last Admin: 12/17/18 22:00 Dose: 2.5 mg Calcitonin (Miacalcin [place] -) 1 spray NS DAILY [facility] Last Admin: 12/17/18 09:19 Dose: 1 spray Calcium/Vitamin D (Oscal 250 Mg+D -) 1 tab PO BID [facility] Last Admin: 12/17/18 22:01 Dose: 1 tab Gabapentin (Neurontin -) 100 mg PO TID [facility] Last Admin: 12/18/18 06:42 Dose: 100 mg Lidocaine (Lidoderm Patch -) 1 patch TP DAILY [facility] Last Admin: 12/17/18 09:16 Dose: 1 patch Miscellaneous (Lidoderm Patch Removal) 1 each MC DAILY@2200 [facility] Last Admin: 12/17/18 22:00 Dose: 1 each Pantoprazole Sodium (Protonix -) 40 mg PO DAILY [facility] Last Admin: 12/17/18 09:16 Dose: 40 mg - Objective Vital Signs: Vital Signs Temperature 98.6 F 12/17/18 18:30 Pulse Rate 95 H 12/17/18 18:30 Respiratory Rate 18 12/17/18 18:30 Blood Pressure 111/55 L 12/17/18 18:30 O2 Sat by Pulse Oximetry (%) 95 12/14/18 21:00 Constitutional: Yes: No Distress, Calm Eyes: Yes: Conjunctiva Clear HENT: Yes: Atraumatic Cardiovascular: Yes: Regular Rate and Rhythm Respiratory: Yes: Regular, CTA Bilaterally Gastrointestinal: Yes: Normal Bowel Sounds, Soft Genitourinary: Yes: Incontinence Musculoskeletal: Yes: Muscle Weakness Extremities: Yes: WNL Edema: No Neurological: Yes: Alert, Weakness Psychiatric: Yes: Alert, Oriented (to name and at times location, not date) Labs: CBC, BMP 12/18/18 06:45 12/18/18 06:45 Microbiology 12/14/18 22:00 Urine - Urine Clean Catch Urine Culture - Final Normal Urogenital Mabel Problem List - Problems (1) Confusion Assessment/Plan: -Neurology on board Code(s): R41.0 - DISORIENTATION, UNSPECIFIED (2) Anemia Assessment/Plan: -Hg 9.7 -monitor Hg daily -transfuse for Hg <8.0 -Hematology on board--recommend for bone marrow biopsy, patient family at bedside and still discussing if going through with biopsy Code(s): D64.9 - ANEMIA, UNSPECIFIED (3) Chronic kidney disease Assessment/Plan: -Renal on board -BUN/Cr 41.6/4.1 -monitor renal function daily Code(s): N18.9 - CHRONIC KIDNEY DISEASE, UNSPECIFIED (4) Compression fracture of body of thoracic vertebra Assessment/Plan: -pain control -PT Code(s): S22.000A - WEDGE COMPRESSION FRACTURE OF UNSP THORACIC VERTEBRA, INIT (5) Intractable back pain Assessment/Plan: -pain control -PT Code(s): M54.9 - DORSALGIA, UNSPECIFIED (6) Paroxysmal A-fib Assessment/Plan: -Xarelto Code(s): I48.0 - PAROXYSMAL ATRIAL FIBRILLATION Assessment/Plan see problem list dvt ppx if family decides to not have bone marrow biopsy done then will begin d/c planning back to rehab facility
[2018-12-18] MEDS ORDERED: PT OWN MED DRAWER 7, Y5N ONE ×2 (11:18→22:13)
[2018-12-18] MEDS: LIDOCAINE 5% TOPICAL PATCH TP SCH (11:21)
[2018-12-18] MEDS: PANTOPRAZOLE 40 MG TABLET (FP) PO SCH (11:22)
[2018-12-18] MEDS: CALCIUM 250MG/VIT-D 125 UNITS 1 COMBO TABLET PO SCH ×2 (11:22→22:27)
[2018-12-18] MEDS: APIXABAN 2.5 MG TABLET PO SCH ×2 (11:22→22:27)
[2018-12-18] MEDS: CALCITONIN - SALMON SYNTHETIC 200 UNITS/SPRAY NS SCH (11:23)
--- NOTE | 2018-12-18 14:07 | PN ---
Progress Note, Physician History of Present Illness: Pt seen and examined at bedside. She complains of malaise. - Current Medication List Current Medications: Active Medications Acetaminophen (Tylenol -) 650 mg PO Q6H PRN PRN Reason: FEVER Acetaminophen (Ofirmev Injection -) 1,000 mg IVPB Q6H PRN PRN Reason: PAIN LEVEL 6-10 Amitriptyline HCl (Elavil -) 10 mg PO HS [facility] Last Admin: 12/17/18 22:00 Dose: 10 mg Apixaban (Eliquis -) 2.5 mg PO BID [facility] Last Admin: 12/18/18 11:22 Dose: 2.5 mg Calcitonin (Miacalcin [place] -) 1 spray NS DAILY [facility] Last Admin: 12/18/18 11:23 Dose: 1 spray Calcium/Vitamin D (Oscal 250 Mg+D -) 1 tab PO BID [facility] Last Admin: 12/18/18 11:22 Dose: 1 tab Gabapentin (Neurontin -) 100 mg PO TID [facility] Last Admin: 12/18/18 06:42 Dose: 100 mg Lidocaine (Lidoderm Patch -) 1 patch TP DAILY [facility] Last Admin: 12/18/18 11:21 Dose: 1 patch Miscellaneous (Lidoderm Patch Removal) 1 each MC DAILY@2200 [facility] Last Admin: 12/17/18 22:00 Dose: 1 each Pantoprazole Sodium (Protonix -) 40 mg PO DAILY [facility] Last Admin: 12/18/18 11:22 Dose: 40 mg - Objective Vital Signs: Vital Signs Temperature 98.2 F 12/18/18 10:00 Pulse Rate 108 H 12/18/18 10:00 Respiratory Rate 21 H 12/18/18 10:00 Blood Pressure 112/63 12/18/18 10:00 O2 Sat by Pulse Oximetry (%) 95 12/14/18 21:00 Constitutional: Yes: Calm Eyes: Yes: Conjunctiva Clear HENT: Yes: Atraumatic Neck: Yes: Supple Cardiovascular: Yes: S1, S2 Respiratory: Yes: CTA Bilaterally Gastrointestinal: Yes: Soft Genitourinary: Yes: WNL Musculoskeletal: Yes: WNL Edema: No Neurological: Yes: Oriented Psychiatric: Yes: Oriented Labs: CBC, BMP 12/18/18 06:45 12/18/18 06:45 Problem List - Problems (1) Back pain Code(s): M54.9 - DORSALGIA, UNSPECIFIED Qualifiers: (2) Anemia Code(s): D64.9 - ANEMIA, UNSPECIFIED (3) Chronic kidney disease Code(s): N18.9 - CHRONIC KIDNEY DISEASE, UNSPECIFIED (4) Compression fracture Code(s): [id number] - Assessment/Plan Current Medications Generic Name Dose Route Start Last Admin Trade Name Stefan PRN Reason Stop Dose Admin Acetaminophen 650 mg 12/15/18 09:10 Tylenol - PO Q6H PRN FEVER Acetaminophen 1,000 mg 12/15/18 09:10 Ofirmev Injection - IVPB Q6H PRN PAIN LEVEL 6-10 Amitriptyline HCl 10 mg 12/15/18 22:00 12/17/18 22:00 Elavil - PO 10 mg HS [facility] Administration Apixaban 2.5 mg 12/14/18 22:00 12/18/18 11:22 Eliquis - PO 2.5 mg BID [facility] Administration Calcitonin 1 spray 12/15/18 10:00 12/18/18 11:23 Miacalcin [place] - NS 1 spray DAILY [facility] Administration Calcium/Vitamin D 1 tab 12/15/18 10:00 12/18/18 11:22 Oscal 250 Mg+D - PO 1 tab BID [facility] Administration Gabapentin 100 mg 12/14/18 22:00 12/18/18 06:42 Neurontin - PO 100 mg TID [facility] Administration Lidocaine 1 patch 12/15/18 10:00 12/18/18 11:21 Lidoderm Patch - TP 1 patch DAILY [facility] Administration Miscellaneous 1 each 12/15/18 22:00 12/17/18 22:00 Lidoderm Patch Removal MC 1 each DAILY@2200 [facility] Administration Pantoprazole Sodium 40 mg 12/15/18 10:00 12/18/18 11:22 Protonix - PO 40 mg DAILY [facility] Administration Impression 1. CKD 2. anemia 3. HTN 4. GERD 5. fatigue 6. back pain r/o compression fracture 7. r/o myeloma - elevated lambda chains Plan - hg is improved - follow ct results - no indication for HD - heme follow up for elevated lambda, r/o myeloma - pain control/rehab - avoid nsaids - renal diet
[2018-12-18] MEDS ORDERED: MECLIZINE HCL 12.5 MG TABLET PO PRN (14:23)
--- NOTE | 2018-12-18 18:10 | PN ---
Progress Note (short form) - Note Progress Note: Patient seen with family members at bedside Once again a discussion with family who spoke with patient about possible bone marrow and possible treatments thereafter. Patint does not want bone marrow. She wants to be made comfortable with pain meds. She has been made aware of the possibilty of a bone marrow cancer which could be diagnosed and possibly treated with improvement in her current status. Anemia, renal disease, hypogammaglobulinemia, lambda light chains of > 12,000 all point towards toward myeloma. At this point in view of patients wishes -- Hospice suggested.
[2018-12-18 20:50] VITALS: TEMP 97.6
[2018-12-18] MEDS: AMITRIPTYLINE HCL 10 MG TABLET (FP) PO SCH (22:27)
[2018-12-18] MEDS: LIDOCAINE PATCH REMOVAL MC SCH (22:35)
[2018-12-19] MEDS: GABAPENTIN 100 MG CAPSULE (FP) PO SCH ×2 (05:20→14:11)
[2018-12-19] MEDS: ACETAMINOPHEN 1000 MG/100 ML VIAL (NON FORMULARY) IVPB PRN (06:50)
[2018-12-19] MEDS: CALCITONIN - SALMON SYNTHETIC 200 UNITS/SPRAY NS SCH (10:47)
[2018-12-19] MEDS: APIXABAN 2.5 MG TABLET PO SCH (10:48)
[2018-12-19] MEDS: LIDOCAINE 5% TOPICAL PATCH TP SCH (10:48)
[2018-12-19] MEDS: PANTOPRAZOLE 40 MG TABLET (FP) PO SCH (10:48)
[2018-12-19] MEDS ORDERED: PT OWN MED DRAWER 7, Y5N ONE ×2 (10:59→12:33)
[2018-12-19] MEDS: CALCIUM 250MG/VIT-D 125 UNITS 1 COMBO TABLET PO SCH (11:00)
[2018-12-19 11:14] VITALS: BP 96/47; PULSE 87
--- NOTE | 2018-12-19 12:44 | PN ---
Progress Note, Physician History of Present Illness: Pt seen and examined at bedside. She remains confused. - Current Medication List Current Medications: Active Medications Acetaminophen (Tylenol -) 650 mg PO Q6H PRN PRN Reason: FEVER Acetaminophen (Ofirmev Injection -) 1,000 mg IVPB Q6H PRN PRN Reason: PAIN LEVEL 6-10 Last Admin: 12/19/18 06:50 Dose: 1,000 mg Amitriptyline HCl (Elavil -) 10 mg PO HS [facility] Last Admin: 12/18/18 22:27 Dose: 10 mg Apixaban (Eliquis -) 2.5 mg PO BID [facility] Last Admin: 12/19/18 10:48 Dose: 2.5 mg Calcitonin (Miacalcin [place] -) 1 spray NS DAILY [facility] Last Admin: 12/19/18 10:47 Dose: 1 spray Calcium/Vitamin D (Oscal 250 Mg+D -) 1 tab PO BID [facility] Last Admin: 12/19/18 11:00 Dose: 1 tab Gabapentin (Neurontin -) 100 mg PO TID [facility] Last Admin: 12/19/18 05:20 Dose: 100 mg Lidocaine (Lidoderm Patch -) 1 patch TP DAILY [facility] Last Admin: 12/19/18 10:48 Dose: 1 patch Meclizine HCl (Antivert -) 12.5 mg PO TID PRN PRN Reason: VERTIGO Miscellaneous (Lidoderm Patch Removal) 1 each MC DAILY@2200 [facility] Last Admin: 12/18/18 22:35 Dose: 1 each Pantoprazole Sodium (Protonix -) 40 mg PO DAILY [facility] Last Admin: 12/19/18 10:48 Dose: 40 mg - Objective Vital Signs: Vital Signs Temperature 97.6 F 12/19/18 06:00 Pulse Rate 87 12/19/18 10:00 Respiratory Rate 20 12/19/18 10:00 Blood Pressure 96/47 L 12/19/18 10:00 O2 Sat by Pulse Oximetry (%) 96 12/19/18 09:00 Constitutional: Yes: Calm Eyes: Yes: Conjunctiva Clear HENT: Yes: Atraumatic Neck: Yes: Supple Cardiovascular: Yes: S1, S2 Respiratory: Yes: CTA Bilaterally Gastrointestinal: Yes: Soft Genitourinary: Yes: WNL Musculoskeletal: Yes: Back Pain Edema: No Neurological: Yes: Confusion Labs: CBC, BMP 12/18/18 06:45 12/18/18 06:45 Problem List - Problems (1) Back pain Code(s): M54.9 - DORSALGIA, UNSPECIFIED Qualifiers: (2) Anemia Code(s): D64.9 - ANEMIA, UNSPECIFIED (3) Chronic kidney disease Code(s): N18.9 - CHRONIC KIDNEY DISEASE, UNSPECIFIED (4) Compression fracture Code(s): [id number] - Assessment/Plan Current Medications Generic Name Dose Route Start Last Admin Trade Name Freq PRN Reason Stop Dose Admin Acetaminophen 650 mg 12/15/18 09:10 Tylenol - PO Q6H PRN FEVER Acetaminophen 1,000 mg 12/15/18 09:10 12/19/18 06:50 Ofirmev Injection - IVPB 1,000 mg Q6H PRN Administration PAIN LEVEL 6-10 Amitriptyline HCl 10 mg 12/15/18 22:00 12/18/18 22:27 Elavil - PO 10 mg HS [facility] Administration Apixaban 2.5 mg 12/14/18 22:00 12/19/18 10:48 Eliquis - PO 2.5 mg BID [facility] Administration Calcitonin 1 spray 12/15/18 10:00 12/19/18 10:47 Miacalcin [place] - NS 1 spray DAILY [facility] Administration Calcium/Vitamin D 1 tab 12/15/18 10:00 12/19/18 11:00 Oscal 250 Mg+D - PO 1 tab BID [facility] Administration Gabapentin 100 mg 12/14/18 22:00 12/19/18 05:20 Neurontin - PO 100 mg TID [facility] Administration Lidocaine 1 patch 12/15/18 10:00 12/19/18 10:48 Lidoderm Patch - TP 1 patch DAILY [facility] Administration Meclizine HCl 12.5 mg 12/18/18 14:23 Antivert - PO TID PRN VERTIGO Miscellaneous 1 each 12/15/18 22:00 12/18/18 22:35 Lidoderm Patch Removal MC 1 each DAILY@2200 [facility] Administration Pantoprazole Sodium 40 mg 12/15/18 10:00 12/19/18 10:48 Protonix - PO 40 mg DAILY [facility] Administration Impression 1. CKD 2. anemia 3. HTN 4. GERD 5. fatigue 6. back pain r/o compression fracture 7. r/o myeloma - elevated lambda chains Plan - recommend that pt gets a bone marrow biopsy, discussed with family - no new labs - oncology eval appreciated - will give another dose of epogen - pt likely has myeloma - if pt and family do not want biopsy, consider hospice - pain control/rehab - avoid nsaids - renal diet
[2018-12-19] MEDS ORDERED: EPOETIN ALFA 10,000 UNIT/1 ML VIAL SQ ONE (13:00)
--- NOTE | 2018-12-19 14:37 | DS ---
Physical Examination Vital Signs: Vital Signs Temperature 97.6 F 12/19/18 06:00 Pulse Rate 87 12/19/18 10:00 Respiratory Rate 20 12/19/18 10:00 Blood Pressure 96/47 L 12/19/18 10:00 O2 Sat by Pulse Oximetry (%) 96 12/19/18 09:00 Constitutional: Yes: No Distress, Calm Eyes: Yes: Conjunctiva Clear HENT: Yes: Atraumatic Cardiovascular: Yes: Regular Rate and Rhythm Respiratory: Yes: Regular, CTA Bilaterally Gastrointestinal: Yes: Normal Bowel Sounds, Soft Musculoskeletal: Yes: Muscle Weakness Extremities: Yes: WNL Edema: No Neurological: Yes: Alert, Confusion Psychiatric: Yes: Alert Labs: CBC, BMP 12/18/18 06:45 12/18/18 06:45 Discharge Summary Reason For Visit: BACK PAIN Current Active Problems Back pain (Acute) Confusion (Acute) Hospital Course: Patient is an 88 y/o female with past medical history of compression fracture, CKD, HTN, anemia, Afib on Eliquis, Multiple Myeloma. Patient presented to ER with persistent back pain and was found to have worsening anemia. Received blood transfusion and Hg improved. Family has decided against bone marrow biopsy. Hg remained stable after transfusion. Laboratory Tests 12/14/18 12/14/18 12/14/18 13:49 13:49 22:00 WBC 7.7 RBC 2.71 L Hgb 8.5 L Hct 26.3 L MCV 96.8 H MCH 31.4 MCHC 32.4 RDW 22.5 H Plt Count 152 D MPV 7.8 Absolute Neuts (auto) 4.2 Total Counted 100 Neutrophils % 54.7 Neutrophils % (Manual) 60.0 Band Neutrophils % 8.0 Lymphocytes % 33.7 D Lymphocytes % (Manual) 22.0 Monocytes % 9.2 Monocytes % (Manual) 4 Eosinophils % 1.7 Eosinophils % (Manual) 3.0 Basophils % 0.7 Basophils % (Manual) Myelocytes % (Man) Promyelocytes % (Man) Blast Cells % (Manual) Nucleated RBC % 0 Metamyelocytes Hypochromia 1+ Platelet Estimate Adequate Platelet Comment No clotting detected Polychromasia Poikilocytosis 2+ Anisocytosis 3+ Microcytosis 1+ Macrocytosis 1+ Tear Drop Cells Ovalocytes Acanthocytes (Spur) Sodium 140 Potassium 4.2 Chloride 111 H Carbon Dioxide 22 Anion Gap 7 L BUN 44.8 H Creatinine 4.2 H Est GFR (CKD-EPI)AfAm 10.42 Est GFR (CKD-EPI)NonAf 8.99 Random Glucose 93 Calcium 9.4 Iron TIBC Iron Saturation Unsaturated IBC Total Bilirubin 0.5 AST 18 ALT 13 Alkaline Phosphatase 76 Total Protein 6.8 Albumin 3.6 Vitamin B12 TSH Urine Color Yellow Urine Appearance Cloudy Urine pH 6.0 Ur Specific [place] 1.020 Urine Protein 2+ H Urine Glucose (UA) 1+ H Urine Ketones Negative Urine Blood Trace Urine Nitrite Negative Urine Bilirubin Negative Urine Urobilinogen 0.2 Ur Leukocyte Esterase Negative Urine WBC (Auto) 1 Urine RBC (Auto) 2 Urine Casts (Auto) 0 U Epithel Cells (Auto) 5.7 Urine Bacteria (Auto) 54.9 Blood Type Antibody Screen Crossmatch 12/16/18 12/16/18 12/16/18 07:49 07:49 07:49 WBC 4.6 RBC 2.38 L Hgb 7.5 L Hct 22.9 L MCV 96.6 H MCH 31.6 MCHC 32.8 RDW 23.2 H Plt Count 128 L MPV 8.0 Absolute Neuts (auto) Total Counted Neutrophils % Neutrophils % (Manual) Band Neutrophils % Lymphocytes % Lymphocytes % (Manual) Monocytes % Monocytes % (Manual) Eosinophils % Eosinophils % (Manual) Basophils % Basophils % (Manual) Myelocytes % (Man) Promyelocytes % (Man) Blast Cells % (Manual) Nucleated RBC % Metamyelocytes Hypochromia Platelet Estimate Platelet Comment Polychromasia Poikilocytosis Anisocytosis Microcytosis Macrocytosis Tear Drop Cells Ovalocytes Acanthocytes (Spur) Sodium 144 Potassium 3.6 Chloride 113 H Carbon Dioxide 22 Anion Gap 8 BUN 43.0 H Creatinine 4.3 H Est GFR (CKD-EPI)AfAm 10.13 Est GFR (CKD-EPI)NonAf 8.74 Random Glucose 93 Calcium 9.1 Iron 121 TIBC 171 L Iron Saturation 70 H Unsaturated IBC 50 L Total Bilirubin AST ALT Alkaline Phosphatase Total Protein Albumin Vitamin B12 TSH Urine Color Urine Appearance Urine pH Ur Specific [place] Urine Protein Urine Glucose (UA) Urine Ketones Urine Blood Urine Nitrite Urine Bilirubin Urine Urobilinogen Ur Leukocyte Esterase Urine WBC (Auto) Urine RBC (Auto) Urine Casts (Auto) U Epithel Cells (Auto) Urine Bacteria (Auto) Blood Type Antibody Screen Crossmatch 12/16/18 12/17/18 12/17/18 21:05 10:15 10:15 WBC 4.8 RBC 2.40 L Hgb 7.5 L Hct 23.1 L MCV 96.3 H MCH 31.3 MCHC 32.5 RDW 22.5 H Plt Count 123 L MPV 8.0 Absolute Neuts (auto) 2.9 Total Counted 100 Neutrophils % 60.9 Neutrophils % (Manual) 65.0 Band Neutrophils % 1.0 Lymphocytes % 28.0 Lymphocytes % (Manual) 26.0 Monocytes % 9.2 Monocytes % (Manual) 4 Eosinophils % 1.2 Eosinophils % (Manual) 1.0 Basophils % 0.7 Basophils % (Manual) 0.0 Myelocytes % (Man) 1 Promyelocytes % (Man) 0 Blast Cells % (Manual) 0 Nucleated RBC % 0 Metamyelocytes 2 Hypochromia 1+ Platelet Estimate Decreased Platelet Comment Polychromasia 1+ Poikilocytosis 1+ Anisocytosis Microcytosis Macrocytosis Tear Drop Cells 1+ Ovalocytes 1+ Acanthocytes (Spur) 1+ Sodium 146 H Potassium 3.3 L Chloride 114 H Carbon Dioxide 22 Anion Gap 9 BUN 45.6 H Creatinine 4.2 H Est GFR (CKD-EPI)AfAm 10.42 Est GFR (CKD-EPI)NonAf 8.99 Random Glucose 96 Calcium 8.9 Iron TIBC Iron Saturation Unsaturated IBC Total Bilirubin 0.4 AST 11 L ALT 10 L Alkaline Phosphatase 73 Total Protein 5.9 L Albumin 3.1 L Vitamin B12 447 TSH 0.35 L Urine Color Urine Appearance Urine pH Ur Specific [place] Urine Protein Urine Glucose (UA) Urine Ketones Urine Blood Urine Nitrite Urine Bilirubin Urine Urobilinogen Ur Leukocyte Esterase Urine WBC (Auto) Urine RBC (Auto) Urine Casts (Auto) U Epithel Cells (Auto) Urine Bacteria (Auto) Blood Type O POSITIVE Antibody Screen Negative Crossmatch See Detail 12/18/18 12/18/18 12/18/18 01:00 06:45 06:45 WBC 4.9 5.2 RBC 2.88 L 3.12 L Hgb 8.9 L 9.7 L Hct 26.6 L D 29.6 L MCV 92.4 94.9 MCH 31.0 31.2 MCHC 33.5 32.9 RDW 21.9 H 22.7 H Plt Count 106 L 106 L MPV 7.7 8.2 Absolute Neuts (auto) 2.8 Total Counted Neutrophils % 54.7 Neutrophils % (Manual) 50.0 Band Neutrophils % 5.1 Lymphocytes % 33.6 Lymphocytes % (Manual) 35.7 D Monocytes % 9.9 Monocytes % (Manual) 6 Eosinophils % 1.4 Eosinophils % (Manual) 2.1 D Basophils % 0.4 Basophils % (Manual) 0.0 Myelocytes % (Man) 1 Promyelocytes % (Man) 0 Blast Cells % (Manual) 0 Nucleated RBC % 0 Metamyelocytes 0 D Hypochromia 0 Platelet Estimate Decreased Platelet Comment Polychromasia 0 Poikilocytosis 2+ Anisocytosis 1+ Microcytosis 0 Macrocytosis 1+ Tear Drop Cells Ovalocytes 1+ Acanthocytes (Spur) 1+ Sodium 145 Potassium 4.1 Chloride 116 H Carbon Dioxide 22 Anion Gap 7 L BUN 41.6 H Creatinine 4.1 H Est GFR (CKD-EPI)AfAm 10.73 Est GFR (CKD-EPI)NonAf 9.26 Random Glucose 81 Calcium 9.0 Iron TIBC Iron Saturation Unsaturated IBC Total Bilirubin 0.6 AST 22 ALT 11 L Alkaline Phosphatase 72 Total Protein 5.7 L Albumin 3.0 L Vitamin B12 TSH Urine Color Urine Appearance Urine pH Ur Specific [place] Urine Protein Urine Glucose (UA) Urine Ketones Urine Blood Urine Nitrite Urine Bilirubin Urine Urobilinogen Ur Leukocyte Esterase Urine WBC (Auto) Urine RBC (Auto) Urine Casts (Auto) U Epithel Cells (Auto) Urine Bacteria (Auto) Blood Type Antibody Screen Crossmatch Active Medications Generic Name Dose Route Start Last Admin Trade Name Stefan PRN Reason Stop Dose Admin Acetaminophen 650 mg 12/15/18 09:10 Tylenol - PO Q6H PRN FEVER Acetaminophen 1,000 mg 12/15/18 09:10 12/19/18 06:50 Ofirmev Injection - IVPB 1,000 mg Q6H PRN Administration PAIN LEVEL 6-10 Amitriptyline HCl 10 mg 12/15/18 22:00 12/18/18 22:27 Elavil - PO 10 mg HS HARRY Administration Apixaban 2.5 mg 12/14/18 22:00 12/19/18 10:48 Eliquis - PO 2.5 mg BID HARRY Administration Calcitonin 1 spray 12/15/18 10:00 12/19/18 10:47 Miacalcin [place] - NS 1 spray DAILY HARRY Administration Calcium/Vitamin D 1 tab 12/15/18 10:00 12/19/18 11:00 Oscal 250 Mg+D - PO 1 tab BID HARRY Administration Gabapentin 100 mg 12/14/18 22:00 12/19/18 14:11 Neurontin - PO 100 mg TID HARRY Administration Lidocaine 1 patch 12/15/18 10:00 12/19/18 10:48 Lidoderm Patch - TP 1 patch DAILY HARRY Administration Meclizine HCl 12.5 mg 12/18/18 14:23 Antivert - PO TID PRN VERTIGO Miscellaneous 1 each 12/15/18 22:00 12/18/18 22:35 Lidoderm Patch Removal MC 1 each DAILY@2200 HARRY Administration Pantoprazole Sodium 40 mg 12/15/18 10:00 12/19/18 10:48 Protonix - PO 40 mg DAILY HARRY Administration Microbiology 12/14/18 22:00 Urine - Urine Clean Catch Urine Culture - Final Normal Urogenital Mabel Condition: Stable - Instructions Diet, Activity, Other Instructions: Follow up with PCP Follow up with [facility]ust[facility] Dr Camara continue on renal/low Na diet continue with medication as prescribed return to ER if develop severe pain, respiratory distress, chest pain Referrals: Ban Camara MD [Staff Physician] - Antoni Mckeon MD [Staff Physician] - Disposition: VNS/HOME HEALTH CARE - Home Medications Comprehensive Discharge Medication List: Ambulatory Orders Pantoprazole Sodium 40 mg PO DAILY #30 tablet. 11/09/18 Acetaminophen [Tylenol .Regular Strength -] 650 mg PO Q6HPO PRN tablet Apixaban [Eliquis -] 2.5 mg PO BID tablet 11/16/18 Calcitonin-[place] [Miacalcin [place] -] 1 spray NS DAILY spray.pump 11/16/18 Gabapentin [Neurontin -] 100 mg PO TID capsule 11/16/18 Pantoprazole Sodium [Protonix] 40 mg PO DAILY 12/14/18 Acetaminophen [Tylenol .Regular Strength -] 650 mg PO Q6H PRN tablet 12/19/18 Amitriptyline HCl [Elavil -] 10 mg PO HS tablet 12/19/18 Apixaban [Eliquis -] 2.5 mg PO BID tablet 12/19/18 Calcitonin-[place] [Miacalcin [place] -] 1 spray NS DAILY spray.pump 12/19/18 Calcium 250Mg/Vit-D 125 Units [Oscal 250 mg+D -] 1 tab PO BID tab 12/19/18 Gabapentin [Neurontin -] 100 mg PO TID capsule 12/19/18 Lidocaine 5% Patch [Lidoderm -] 1 patch TP DAILY patch 12/19/18 Lidocaine Patch Removal [Lidoderm Patch Removal] 1 each MC DAILY@2200 each 01/27 Meclizine HCl [Antivert -] 12.5 mg PO TID PRN tablet 12/19/18 Pantoprazole Sodium [Protonix -] 40 mg PO DAILY tablet.ec 12/19/18
== END 2018-12-19 16:21 | disposition home or self-care (01) | DRG 841 ==
LOC: JER 13:07 → JERBED 14:37 → J6S 17:22
PROVIDERS: ADMIT Family Medicine; ATTEND Family Medicine
PROC: 30233N1 Transfusion of Nonautologous Red Blood Cells into Peripheral Vein, Percutaneous Approach (ICD-10-PCS; principal; 2018-12-17)
DX: C90.00 Multiple myeloma not having achieved remission (principal); M48.54XA Collapsed vertebra, not elsewhere classified, thoracic region, initial encounter for fracture; M48.56XA Collapsed vertebra, not elsewhere classified, lumbar region, initial encounter for fracture; D80.1 Nonfamilial hypogammaglobulinemia; I12.0 Hypertensive chronic kidney disease with stage 5 chronic kidney disease or end stage renal disease; N18.5 Chronic kidney disease, stage 5; D64.9 Anemia, unspecified; K21.9 Gastro-esophageal reflux disease without esophagitis; R26.81 Unsteadiness on feet; M85.80 Other specified disorders of bone density and structure, unspecified site; I48.0 Paroxysmal atrial fibrillation; R41.0 Disorientation, unspecified
CPT/HCPCS: 36415; 36430; 36511; 80048; 80053; 81003; 82607; 83540; 83550; 84443; 85025; 85027; 86850; 86900; 86901; 86922; 87086; 97116-GP; 97162-GP; 99282-25; J0131; J0885; P9038; P9058

== ENCOUNTER 2019-01-09 12:23 | Inpatient (IN) | payer OTHER ==
--- NOTE | 2019-01-09 12:38 | PDOC ---
Rapid Medical Evaluation Time Seen by Provider: 01/09/19 12:33 Medical Evaluation: Allergies Allergy/AdvReac Type Severity Reaction Status Date / Time Penicillins Allergy Verified 12/14/18 13:14 aspirin AdvReac Vomiting Verified 12/14/18 13:14 01/09/19 12:33 CC: dizziness. Fall overnight ~0200. PE: [place] Negative. Petichiae to left zygoma. Large ecchymosis to left shoulder. Orders: Cardiac w/u Patient will proceed to ER for evaluation. Discharge Disposition - Diagnosis Fall - Referrals - Patient Instructions - Post Discharge Activity
[2019-01-09] MEDS ORDERED: ACETAMINOPHEN 1000 MG/100 ML VIAL (NON FORMULARY) IVPB ONE (13:49)
[2019-01-09 13:55] LABS: BASO % 0.4 % (0-2.0); EOS % 0.9 % (0-4.5); HEMATOCRIT 22.4 % (32.4-45.2); HEMOGLOBIN 7.6 GM/dL (10.7-15.3); LYMPH % 29.5 % (8-40); MCH 31.5 pg (25.7-33.7); MCHC 33.9 g/dl (32.0-36.0); MEAN CELL VOLUME 92.8 fl (80-96); MEAN PLT VOLUME 7.7 fl (7.5-11.1); MONO % 7.2 % (3.8-10.2); PLATELET COUNT 99 K/MM3 (134-434); RBC 2.42 M/mm3 (3.60-5.2); RDW 22.3 % (11.6-15.6)
--- NOTE | 2019-01-09 13:56 | PDOC ---
History of Present Illness - General Chief Complaint: Injury Stated Complaint: WEAKNESS Time Seen by Provider: 01/09/19 12:33 History Source: Patient, Family (daughter) Exam Limitations: Language Barrier (Amharic) - History of Present Illness Initial Comments: 01/09/19 13:52 88yo F with PMH of CKD, Afib (Eliquis), Anemia, MM, HTN, Compersion Fractures presenting to ED after fall at home. Per daughter, patient got up to use the restroom. She did not hold on to her walker correctly and fell. Patient and daughter state that patient did not hit her head. Patient was able to be lifted up off the ground and placed into bed. Per daughter, patient has not had any syncopal episodes at home, no n/v, no headache or changes in vision. Patient only complaining of pain in the L shoulder. Denies numbness/tingling, new back pain, urinary incontinence, new weakness. She states that for the past few weeks , she has pain in the L quadriceps when she places weight on the leg. Patient had a transfusion last month and daughter states that last week, hgb was around 7. PMD: Mike Renal: Hoa PMH: see hpi Meds: see med rec Allergies: PCN, ASA Past History - Past Medical History Allergies/Adverse Reactions: Allergies Allergy/AdvReac Type Severity Reaction Status Date / Time Penicillins Allergy Verified 01/09/19 12:41 aspirin AdvReac Vomiting Verified 01/09/19 12:41 Home Medications: Ambulatory Orders Apixaban [Eliquis -] 2.5 mg PO BID #60 tablet 12/19/18 Gabapentin [Neurontin -] 100 mg PO TID #90 capsule 12/19/18 Pantoprazole Sodium [Protonix] 40 mg PO DAILY #30 tablet. 12/19/18 Hydrocodone/Acetaminophen [Hydrocodone-Acetamin 5-300 mg] 1 each PO BID Anemia: Yes (blood transfusions every 3wks) Cardiac Disorders: Yes (AFIB ON ELIQUIS) COPD: No CHF: Yes Diabetes: No Dialysis: Yes (last episode one month ago) HTN: Yes Hypercholesterolemia: No - Surgical History Appendectomy: Yes Cholecystectomy: Yes - Reproductive History Cervical CA: No Dysfunctional Uterine Bleeding: No Ectopic : No Endometrial CA: No Polycystic Ovaries: No Tubal Ligation: No - Immunization History Immunization Up to Date: Yes - Psycho Social/Smoking Cessation Hx Smoking Status: No Smoking History: Never smoked Have you smoked in the past 12 months: No Number of Cigarettes Smoked Daily: 0 If you are a former smoker, when did you quit?: n Information on smoking cessation initiated: No Hx Alcohol Use: No Drug/Substance Use Hx: No Substance Use Type: None Hx Substance Use Treatment: No (occasional drinker) Review of Systems - Review of Systems Constitutional: No: Chills, Fever HEENTM: No: Symptoms Reported Respiratory: No: Symptoms reported Cardiac (ROS): No: Symptoms Reported ABD/GI: No: Symptoms Reported : No: Symptoms Reported Musculoskeletal: Yes: See HPI, Back Pain (chronic), Other (shoulder pain) Neurological: No: Symptoms reported, Numbness, Paresthesia, Seizure, Tremors, Weakness *Physical Exam - Vital Signs Last Vital Signs Temp Pulse Resp BP Pulse Ox 97.8 F 79 18 102/47 L 99 01/09/19 12:34 01/09/19 12:34 01/09/19 12:34 01/09/19 12:34 01/09/19 12:34 - Physical Exam General Appearance: Yes: Nourished, Appropriately Dressed. No: Apparent Distress HEENT: positive: EOMI, ROHITH, Normal ENT Inspection Neck: positive: Trachea midline, Supple Respiratory/Chest: positive: Lungs Clear, Normal Breath Sounds Cardiovascular: positive: Regular Rhythm, Regular Rate, S1, S2. negative: Edema , JVD, Murmur Vascular Pulses: Dorsalis-Pedis (R): 2+, Doralis-Pedis (L): 2+ Gastrointestinal/Abdominal: positive: Normal Bowel Sounds, Soft. negative: Tender Musculoskeletal: negative: CVA Tenderness, Decreased Range of Motion Extremity: positive: Normal Capillary Refill, Pedal Edema (1+). negative: Erythema Integumentary: positive: Normal Color, Dry, Warm, Rash (brown rash on temples), Ecchymosis (over L shoulder. ). 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 Pt did not lose consciousness and has been able to ambulate with assistance. Mainly complaining of pain in juvenal shoulders. No LOC, no weakness, no numbness or tingling. Chronic back pain from compression fractures. labs ordered, includint ts. ekg, cxr, ct head. ofirmev for pain. cxr: distal left clavicular fracture. CT head shows bony lytic lesions likely 2/2 MM. No acute intracranial bleed seen. Cr at baseline. labs significant for anemia hgb 7. trop 0.07 but no ekg evidence of acute ischemia. trop could be 2/2/ demand. ekg: sinus at 79. RBBB. no dipti or depressions. admitted tele to Dr. Mckeon Discharge - Discharge Information Problems reviewed: Yes Clinical Impression/Diagnosis: Troponin I above reference range Fall Qualifiers: Encounter type: initial encounter Qualified Code(s): W19.XXXA - Unspecified fall, initial encounter Anemia Qualifiers: Anemia type: unspecified type Qualified Code(s): D64.9 - Anemia, unspecified Condition: Stable - Admission Yes - Follow up/Referral - Patient Discharge Instructions - Post Discharge Activity
[2019-01-09 14:14] LABS: INR 1.24 (0.83-1.09); PROTHROMBIN TIME (PATIENT) 14.7 SEC (9.7-13.0)
[2019-01-09 14:21] LABS: ALBUMIN 3.4 g/dl (3.4-5.0); BILIRUBIN,TOTAL 0.4 mg/dL (0.2-1); BLOOD UREA NITROGEN 48.7 mg/dL (7-18); CALCIUM 9.2 mg/dL (8.5-10.1); CREATININE 3.9 mg/dL (0.55-1.3); MAGNESIUM 2.4 mg/dL (1.8-2.4); POTASSIUM 3.6 mmol/L (3.5-5.1); TOT PROT 6.2 g/dl (6.4-8.2)
[2019-01-09] MEDS ORDERED: ACETAMINOPHEN INJECTION 100 ML IVPB ONE (14:38)
--- NOTE | 2019-01-09 14:48 | PDOC ---
Attending Attestation - Resident Resident Name: Virginie Garcia - ED Attending Attestation I have performed the following: I have examined & evaluated the patient, The case was reviewed & discussed with the resident, I agree w/resident's findings & plan - HPI HPI: 01/09/19 14:45 88y/o F h/o CRI, anemia awaiting procrit approval by insurance presents after labs drawn as outpt revealed Hgb 7.7. pt symptomatic with increased fatigue and generalized weakness, no syncope/chest pain. pt has been ambulating with walker or using wheelchair, sustained fall yesterday with L shoulder injury, found on ground alert by daughter. - Physicial Exam PE: 01/09/19 14:46 vss, BP wnl alert, nad, german speaking head atraumatic, no cspine ttp and FROM s1s2 rrr, no rib ttp ctab abd benign ecchymois/sts over L shoulder and clavicle. slight L distal clavicle ttp without crepitus or deformity, FROM L shoulder, no scapular ttp. nvi. lower extr normal, FROM - Medical Decision Making 01/09/19 14:48 88-year-old female with history of chronic renal insufficiency and anemia presents with symptomatic anemia now status post fall with left shoulder/ clavicle injury, no direct head injury and neurologically intact area neurovascularly intact on exam. Labs including type and screen Transfuse 2 units packed red blood cells Left shoulder x-ray, chest x-ray CT head Admit to Dr. Mckeon 01/09/19 14:49 hgb 7.6, baseline elevated Cr 01/09/19 16:02 cxr confirms distal L clavicle fracture, lungs clear ct head without acute TBI but infiltrative v. metastatic process. PRBC ordered, pending admission Heart Score/ECG Review #1 ECG reviewed & interpreted by me at: 15:18 General ECG Interpretation: Sinus Rhythm (with APC), Normal Rate (79), Normal Intervals (qtc 428, RBBB, LAFB), No acute ischemic changes Compared to previous ECG there are: No significant change (c/w 11/10/18)
--- NOTE | 2019-01-09 15:34 | EKG ---
Test Reason : Blood Pressure : / mmHG Vent. Rate : 079 BPM Atrial Rate : 079 BPM P-R Int : 176 ms QRS Dur : 138 ms QT Int : 374 ms P-R-T Axes : 000 -66 -22 degrees QTc Int : 428 ms SINUS RHYTHM WITH PREMATURE SUPRAVENTRICULAR COMPLEXES RIGHT BUNDLE BRANCH BLOCK LEFT ANTERIOR FASCICULAR BLOCK BIFASCICULAR BLOCK ABNORMAL ECG WHEN COMPARED WITH ECG OF 10-NOV-2018 15:44, NO SIGNIFICANT CHANGE WAS FOUND Confirmed by Kalpesh La MD ([id number]) on 01/09/2019 3:34:04 PM Referred By: Confirmed By:Kalpesh La MD
[2019-01-09 15:51] LABS: ANISOCYTOSIS 1+; MACROCYTOSIS 0; PLATELET ESTIMATE DECREASED
--- NOTE | 2019-01-09 17:04 | CONSULT ---
Consult Consult Specialty:: Nephrology Reason for Consultation:: CKD - History of Present Illness Chief Complaint: s/p fall at home History of Present Illness: Pt is an 88 year old female with pmhx of CKD, a-fib, anemai, htn, likely multiple myeloma (undiagnosed), and compression fractures who presents to the ER after a fall at home. 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 She has a bruise on her left shoulder. She denies shortness of breath. She denies loss of appetite. - History Source History Provided By: Patient, Medical Record - Past Medical History Cardio/Vascular: Yes: HTN Gastrointestinal: Yes: GERD Renal/: Yes: Renal Inusuff - Alcohol/Substance Use Hx Alcohol Use: No - Smoking History Smoking history: Never smoked Have you smoked in the past 12 months: No Aproximately how many cigarettes per day: 0 If you are a former smoker, when did you quit?: n Home Medications - Allergies Allergies/Adverse Reactions: Allergies Allergy/AdvReac Type Severity Reaction Status Date / Time Penicillins Allergy Verified 01/09/19 12:41 aspirin AdvReac Vomiting Verified 01/09/19 12:41 - Home Medications Home Medications: Ambulatory Orders Apixaban [Eliquis -] 2.5 mg PO BID #60 tablet 12/19/18 Gabapentin [Neurontin -] 100 mg PO TID #90 capsule 12/19/18 Pantoprazole Sodium [Protonix] 40 mg PO DAILY #30 tablet. 12/19/18 Hydrocodone/Acetaminophen [Hydrocodone-Acetamin 5-300 mg] 1 each PO BID Family Medical History Family History: Denies Review of Systems - Review of Systems Constitutional: reports: Malaise Eyes: reports: No Symptoms HENT: reports: No Symptoms Neck: reports: No Symptoms Cardiovascular: reports: No Symptoms Respiratory: reports: No Symptoms Gastrointestinal: reports: No Symptoms Genitourinary: reports: No Symptoms Musculoskeletal: reports: Back Pain Integumentary: reports: No Symptoms Neurological: reports: No Symptoms Endocrine: reports: No Symptoms Hematology/Lymphatic: reports: No Symptoms Psychiatric: reports: No Symptoms Physical Exam Vital Signs: Vital Signs Temperature 97.5 F L 01/09/19 16:10 Pulse Rate 61 01/09/19 16:10 Respiratory Rate 20 01/09/19 16:10 Blood Pressure 94/40 L 01/09/19 16:10 O2 Sat by Pulse Oximetry (%) 95 01/09/19 16:49 Constitutional: Yes: Calm Eyes: Yes: Conjunctiva Clear HENT: Yes: Atraumatic Cardiovascular: Yes: S1, S2 Respiratory: Yes: CTA Bilaterally Gastrointestinal: Yes: Soft Renal/: Yes: WNL Musculoskeletal: Yes: Other (shoulder pain) Edema: LLE: Trace, RLE: Trace Neurological: Yes: Oriented Psychiatric: Yes: Oriented Labs: CBC, BMP 01/09/19 13:32 01/09/19 13:32 Laboratory Tests 01/09/19 01/09/19 13:32 13:32 WBC 5.0 Hgb 7.6 L Sodium 142 Potassium 3.6 BUN 48.7 H Creatinine 3.9 H Imaging - Results Cat Scan: Report Reviewed Assessment/Plan Impression 1. CKD 2. anemia 3. HTN 4. GERD 5. fatigue 6. back pain r/o compression fracture 7. r/o myeloma - elevated lambda chains Plan - will give a dose of procrit - monitor hg - follow radiology reports - monitor renal function - still recommend bone marrow to r/p myeloma - discussed with family - renal diet
[2019-01-09] MEDS ORDERED: EPOETIN ALFA 20,000 UNIT/1 ML VIAL SQ ONE (18:00)
--- NOTE | 2019-01-09 18:09 | HP ---
Admitting History and Physical - Primary Care Physician PCP: Antoni Mckeon - Admission Chief Complaint: low Hg History of Present Illness: Patient is an 88 y/o female with past medical history of CKD, Afib on Eliquis, Anemia, MM, HTN, Compression Fracture. Patient presented to ER for low Hg and s /p fall at home. Patient had labs drawn by PCP which showed Hg~7. Patient is currently awaiting approval for Procrit from insurance. In ER labs show Hg 7.6. Patient also sustained fall on Tuesday at around 2am. Patient was getting up to use the bathroom and states she tripped on her walker. She denies LOC but admits to possibly hitting her head. On exam 1U PRBC transfusing. History Source: Patient, Family Member (son) Limitations to Obtaining History: No Limitations - Past Medical History Cardiovascular: Yes: AFIB, HTN Gastrointestinal: Yes: GERD Renal/: Yes: Renal Inusuff Heme/Onc: Yes: Anemia, Other (MM) - Smoking History Smoking history: Never smoked Have you smoked in the past 12 months: No Aproximately how many cigarettes per day: 0 If you are a former smoker, when did you quit?: n - Alcohol/Substance Use Hx Alcohol Use: No - Social History ADL: Family Assistance History of Recent Travel: No Home Medications - Allergies Allergies/Adverse Reactions: Allergies Allergy/AdvReac Type Severity Reaction Status Date / Time Penicillins Allergy Verified 01/09/19 12:41 aspirin AdvReac Vomiting Verified 01/09/19 12:41 - Home Medications Home Medications: Ambulatory Orders Apixaban [Eliquis -] 2.5 mg PO BID #60 tablet 12/19/18 Gabapentin [Neurontin -] 100 mg PO TID #90 capsule 12/19/18 Pantoprazole Sodium [Protonix] 40 mg PO DAILY #30 tablet. 12/19/18 Hydrocodone/Acetaminophen [Hydrocodone-Acetamin 5-300 mg] 1 each PO BID Review of Systems - Review of Systems Constitutional: reports: Weakness Eyes: reports: No Symptoms HENT: reports: No Symptoms Neck: reports: No Symptoms Cardiovascular: reports: No Symptoms Respiratory: reports: No Symptoms Gastrointestinal: reports: No Symptoms Genitourinary: reports: No Symptoms Breasts: reports: No Symptoms Reported Musculoskeletal: reports: Joint Swelling, Muscle Weakness Integumentary: reports: Bruising Neurological: reports: No Symptoms Endocrine: reports: No Symptoms Hematology/Lymphatic: reports: No Symptoms Psychiatric: reports: No Symptoms Physical Examination Vital Signs: Vital Signs Temperature 97.5 F L 01/09/19 16:10 Pulse Rate 61 01/09/19 16:10 Respiratory Rate 20 01/09/19 16:10 Blood Pressure 94/40 L 01/09/19 16:10 O2 Sat by Pulse Oximetry (%) 95 01/09/19 16:49 Constitutional: Yes: No Distress, Calm Eyes: Yes: Conjunctiva Clear HENT: Yes: Atraumatic Cardiovascular: Yes: Pulse Irregular Respiratory: Yes: Regular, CTA Bilaterally Gastrointestinal: Yes: Normal Bowel Sounds, Soft Musculoskeletal: Yes: Muscle Weakness Extremities: Yes: WNL Edema: Yes Edema: LLE: 1+, RLE: 1+ Integumentary: Yes: Bruising (L shoulder) Neurological: Yes: Alert, Oriented, Pre-Existing Deficit Psychiatric: Yes: Alert, Oriented Labs: CBC, BMP 01/09/19 13:32 01/09/19 13:32 Imaging - Results Cat Scan: Report Reviewed Problem List - Problems (1) Fall Assessment/Plan: -Fall precaution -PT -neuro checks -Head CT Scan shows moderate atrophy, no acute infarct or intracranial hemorrhage, multiple lucent foci in in the calvarium suggestive of an infiltrative process, lymphoproliferative disorder vs metastasis, larger area of focal bone destruction in the left side of the frontal bone with a soft tissue component measuring 2.9 x 1.3 x 2.1cm that appears to be extending into the roof of the left orbit, extraconal compartment and may be extending into the left lateral margin of the frontal sinus compatible with metastasis -Shoulder Xray shows fracture of the distal left clavicle and pathologic fracture suspected Code(s): W19.XXXA - UNSPECIFIED FALL, INITIAL ENCOUNTER (2) Anemia Assessment/Plan: -Hg 7.6 -1U PRBC transfused -monitor Hg daily -transfuse for Hg <8.0 Code(s): D64.9 - ANEMIA, UNSPECIFIED (3) Chronic kidney disease Assessment/Plan: -Renal consult -BUN/Cr 48.7/3.9 -monitor renal function daily Code(s): N18.9 - CHRONIC KIDNEY DISEASE, UNSPECIFIED (4) Paroxysmal A-fib Assessment/Plan: -Eliquis Code(s): I48.0 - PAROXYSMAL ATRIAL FIBRILLATION (5) Clavicle fracture Assessment/Plan: -Ortho consult -pain control Code(s): S42.009A - FRACTURE OF UNSP PART OF UNSP CLAVICLE, INIT FOR CLOS FX (6) Multiple myeloma Assessment/Plan: -Oncology consult -Head CT Scan shows moderate atrophy, no acute infarct or intracranial hemorrhage, multiple lucent foci in in the calvarium suggestive of an infiltrative process, lymphoproliferative disorder vs metastasis, larger area of focal bone destruction in the left side of the frontal bone with a soft tissue component measuring 2.9 x 1.3 x 2.1cm that appears to be extending into the roof of the left orbit, extraconal compartment and may be extending into the left lateral margin of the frontal sinus compatible with metastasis Code(s): C90.00 - MULTIPLE MYELOMA NOT HAVING ACHIEVED REMISSION Assessment/Plan see problem list SCDs
[2019-01-09] MEDS: APIXABAN 2.5 MG TABLET PO SCH (21:06)
[2019-01-09] MEDS: GABAPENTIN 100 MG CAPSULE (FP) PO SCH (21:06)
[2019-01-09 22:54] VITALS: BMI 25.0
[2019-01-10] MEDS: GABAPENTIN 100 MG CAPSULE (FP) PO SCH (05:28)
[2019-01-10 05:30] VITALS: BP 110/54; PULSE 78; TEMP 98.6
[2019-01-10 06:24] LABS: BASO % 0.3 % (0-2.0); EOS % 0.8 % (0-4.5); HEMATOCRIT 26.6 % (32.4-45.2); LYMPH % 27.5 % (8-40); MCHC 33.7 g/dl (32.0-36.0); MEAN PLT VOLUME 7.6 fl (7.5-11.1); MONO % 6.9 % (3.8-10.2); NEUT % 64.5 % (42.8-82.8); PLATELET COUNT 82 K/MM3 (134-434); RBC 2.99 M/mm3 (3.60-5.2); RDW 22.1 % (11.6-15.6); WHITE BLOOD COUNT 4.7 K/mm3 (4.0-10.0)
[2019-01-10 07:20] LABS: BILIRUBIN,TOTAL 0.5 mg/dL (0.2-1); CALCIUM 8.9 mg/dL (8.5-10.1); CREATININE 3.6 mg/dL (0.55-1.3); POTASSIUM 3.5 mmol/L (3.5-5.1); TOT PROT 5.5 g/dl (6.4-8.2)
[2019-01-10] MEDS ORDERED: PANTOPRAZOLE 40 MG TABLET (FP) PO SCH (10:00)
[2019-01-10] MEDS: APIXABAN 2.5 MG TABLET PO SCH (10:41)
--- NOTE | 2019-01-10 10:49 | PN ---
Progress Note, Physician Chief Complaint: S/P fall Left distal clavicular fracture Metastatic disease - Current Medication List Current Medications: Active Medications Apixaban (Eliquis -) 2.5 mg PO BID [facility] Last Admin: 01/10/19 10:41 Dose: 2.5 mg Gabapentin (Neurontin -) 100 mg PO TID [facility] Last Admin: 01/10/19 05:28 Dose: 100 mg Pantoprazole Sodium (Protonix -) 40 mg PO DAILY [facility] Last Admin: 01/10/19 10:41 Dose: 40 mg - Objective Vital Signs: Vital Signs Temperature 98.6 F 01/10/19 05:29 Pulse Rate 78 01/10/19 05:29 Respiratory Rate 20 01/10/19 05:29 Blood Pressure 110/54 L 01/10/19 05:29 O2 Sat by Pulse Oximetry (%) 97 01/09/19 21:00 Labs: CBC, BMP 01/10/19 05:35 01/10/19 05:35 INR, PTT INR 1.24 (0.83-1.09) H 01/09/19 13:32
--- NOTE | 2019-01-10 10:59 | DS ---
Physical Examination Vital Signs: Vital Signs Temperature 98.6 F 01/10/19 05:29 Pulse Rate 78 01/10/19 05:29 Respiratory Rate 20 01/10/19 05:29 Blood Pressure 110/54 L 01/10/19 05:29 O2 Sat by Pulse Oximetry (%) 97 01/09/19 21:00 Findings/Remarks: Patient is an 88 y/o female with past medical history of CKD, Afib on Eliquis, Anemia, MM, HTN, Compression Fracture. Patient presented to ER for low Hg and s /p fall at home. Patient had labs drawn by PCP which showed Hg~7. Patient is currently awaiting approval for Procrit from insurance. In ER labs show Hg 7.6. Patient also sustained fall on Tuesday at around 2am. Patient was getting up to use the bathroom and states she tripped on her walker. She denies LOC but admits to possibly hitting her head. On exam 1U PRBC transfusing. Constitutional: Yes: Well Nourished, No Distress, Calm Cardiovascular: Yes: Regular Rate and Rhythm Respiratory: Yes: Regular Gastrointestinal: Yes: Normal Bowel Sounds, Soft Labs: CBC, BMP 01/10/19 05:35 01/10/19 05:35 Discharge Summary Problems reviewed: Yes Reason For Visit: ANEMIA;ELEVATED TROPIN LEVEL;FALL Current Active Problems Anemia (Acute) Clavicle fracture (Acute) Fall (Acute) Multiple myeloma (Acute) Troponin I above reference range (Acute) Laboratory Last Values WBC 4.7 K/mm3 (4.0-10.0) 01/10/19 05:35 RBC 2.99 M/mm3 (3.60-5.2) L 01/10/19 05:35 Hgb 9.0 GM/dL (10.7-15.3) L 01/10/19 05:35 Hct 26.6 % (32.4-45.2) L D 01/10/19 05:35 MCV 89.0 fl (80-96) 01/10/19 05:35 MCH 30.0 pg (25.7-33.7) 01/10/19 05:35 MCHC 33.7 g/dl (32.0-36.0) 01/10/19 05:35 RDW 22.1 % (11.6-15.6) H 01/10/19 05:35 Plt Count 82 K/MM3 (134-434) L 01/10/19 05:35 MPV 7.6 fl (7.5-11.1) 01/10/19 05:35 Absolute Neuts (auto) 3.0 K/mm3 (1.5-8.0) 01/10/19 05:35 Neutrophils % 64.5 % (42.8-82.8) 01/10/19 05:35 Lymphocytes % 27.5 % (8-40) 01/10/19 05:35 Monocytes % 6.9 % (3.8-10.2) 01/10/19 05:35 Eosinophils % 0.8 % (0-4.5) 01/10/19 05:35 Basophils % 0.3 % (0-2.0) 01/10/19 05:35 Nucleated RBC % 0 % (0-0) 01/10/19 05:35 Hypochromia 0 01/09/19 13:32 Platelet Estimate Decreased 01/09/19 13:32 Polychromasia 0 01/09/19 13:32 Poikilocytosis 3+ 01/09/19 13:32 Anisocytosis 1+ 01/09/19 13:32 Microcytosis 1+ 01/09/19 13:32 Macrocytosis 0 01/09/19 13:32 Acanthocytes (Spur) 1+ 01/09/19 13:32 Schistocytes 1+ 01/09/19 13:32 PT with INR 14.70 SEC (9.7-13.0) H 01/09/19 13:32 INR 1.24 (0.83-1.09) H 01/09/19 13:32 Sodium 143 mmol/L (136-145) 01/10/19 05:35 Potassium 3.5 mmol/L (3.5-5.1) 01/10/19 05:35 Chloride 114 mmol/L (98-107) H 01/10/19 05:35 Carbon Dioxide 22 mmol/L (21-32) 01/10/19 05:35 Anion Gap 7 MMOL/L (8-16) L 01/10/19 05:35 BUN 48.0 mg/dL (7-18) H 01/10/19 05:35 Creatinine 3.6 mg/dL (0.55-1.3) H 01/10/19 05:35 Est GFR (CKD-EPI)AfAm 12.56 01/10/19 05:35 Est GFR (CKD-EPI)NonAf 10.83 01/10/19 05:35 POC Glucometer 109 UNITS (80-120) 01/10/19 06:42 Random Glucose 83 mg/dL (74-106) 01/10/19 05:35 Calcium 8.9 mg/dL (8.5-10.1) 01/10/19 05:35 Magnesium 2.4 mg/dL (1.8-2.4) 01/09/19 13:32 Total Bilirubin 0.5 mg/dL (0.2-1) 01/10/19 05:35 AST 12 U/L (15-37) L 01/10/19 05:35 ALT 16 U/L (13-61) 01/10/19 05:35 Alkaline Phosphatase 89 U/L (45-117) 01/10/19 05:35 Creatine Kinase 29 U/L (26-192) 01/09/19 13:32 Troponin I 0.07 ng/ml (0.00-0.05) H 01/09/19 13:32 Total Protein 5.5 g/dl (6.4-8.2) L 01/10/19 05:35 Albumin 3.0 g/dl (3.4-5.0) L 01/10/19 05:35 TSH 0.57 uIU/ml (0.358-3.74) 01/10/19 05:35 Blood Type O POSITIVE 01/09/19 13:32 Antibody Screen Negative 01/09/19 13:32 Crossmatch See Detail 01/09/19 13:32 Vital Signs Temp 98.6 F 01/10/19 05:29 Pulse 78 01/10/19 05:29 Resp 20 01/10/19 05:29 BP 110/54 L 01/10/19 05:29 Pulse Ox 97 01/09/19 21:00 Intake & Output 01/09/19 01/09/19 01/10/19 11:59 23:59 11:59 Intake Total 200 570 Output Total 300 Balance 200 270 Weight 62.142 kg Intake: IV 100 left upper arm 100 Oral 200 120 Packed Cells 350 Output: Urine 300 Void 300 Other: Voiding Method Bedpan # Unmeasured Voids Void 2 Bowel Movement No Height 5 ft 2 in Body Mass Index (BMI) 25.0 Weight Measurement Method Standing Scale Weight Measurement Method Est/Stated by Patient Condition: Guarded - Instructions Diet, Activity, Other Instructions: Fentanyl patch 12 mcg, 1 patch every 72 h Miralax daily for constipation Calcitonin+salmon nasal spray, 1 spray each nostril daily Referrals: Antoni Mckeon MD [Staff Physician] - Disposition: HOME - Home Medications Comprehensive Discharge Medication List: Ambulatory Orders Apixaban [Eliquis -] 2.5 mg PO BID #60 tablet 12/19/18 Gabapentin [Neurontin -] 100 mg PO TID #90 capsule 12/19/18 Pantoprazole Sodium [Protonix] 40 mg PO DAILY #30 tablet.dr 12/19/18 Hydrocodone/Acetaminophen [Hydrocodone-Acetamin 5-300 mg] 1 each PO BID Calcitonin-[place] [Miacalcin [place] -] 200 units NS DAILY #1 spray.pump 01/10/19 FENTANYL 12mcg PATCH [DURAGESIC 12mcg PATCH -] 1 each TD Q72H #10 patch MDD 1 Polyethylene Glycol 3350 [Miralax (For Daily Use) -] 17 gm PO DAILY #1 bottle Prescription Drug Monitoring Program (I-STOP) results: I-STOP reviewed and no issues identified
--- NOTE | 2019-01-10 11:33 | CON.ORTH ---
Consult Reason for Consultation:: left clavicle fx - Past Medical History Cardio/Vascular: Yes: AFIB, HTN Gastrointestinal: Yes: GERD Renal/: Yes: Renal Inusuff ...: No - Alcohol/Substance Use Hx Alcohol Use: No - Smoking History Smoking history: Never smoked Have you smoked in the past 12 months: No Aproximately how many cigarettes per day: 0 If you are a former smoker, when did you quit?: n - Social History ADL: Family Assistance History of Recent Travel: No Home Medications - Allergies Allergies/Adverse Reactions: Allergies Allergy/AdvReac Type Severity Reaction Status Date / Time Penicillins Allergy Verified 01/09/19 12:41 aspirin AdvReac Vomiting Verified 01/09/19 12:41 - Home Medications Home Medications: Ambulatory Orders Apixaban [Eliquis -] 2.5 mg PO BID #60 tablet 12/19/18 Gabapentin [Neurontin -] 100 mg PO TID #90 capsule 12/19/18 Pantoprazole Sodium [Protonix] 40 mg PO DAILY #30 tablet. 12/19/18 Hydrocodone/Acetaminophen [Hydrocodone-Acetamin 5-300 mg] 1 each PO BID Calcitonin-[place] [Miacalcin [place] -] 200 units NS DAILY #1 spray.pump 01/10/19 FENTANYL 12mcg PATCH [DURAGESIC 12mcg PATCH -] 1 each TD Q72H #10 patch MDD 1 Polyethylene Glycol 3350 [Miralax (For Daily Use) -] 17 gm PO DAILY #1 bottle Physical Exam for Ortho Vital Signs: Vital Signs Temperature 98.6 F 01/10/19 05:29 Pulse Rate 78 01/10/19 05:29 Respiratory Rate 20 01/10/19 05:29 Blood Pressure 110/54 L 01/10/19 05:29 O2 Sat by Pulse Oximetry (%) 97 01/09/19 21:00 Labs: CBC, BMP 01/10/19 05:35 01/10/19 05:35 INR, PTT INR 1.24 (0.83-1.09) H 01/09/19 13:32 - Upper Extremity Shoulder: Yes: Left, Ecchymosis, Limited ROM, Pain, Swelling, Tenderness, Other (nvi) Imaging - Results X-ray: Report Reviewed, Image Reviewed Assessment/Plan Pt is an 88 year old female with pmhx of CKD, a-fib, anemai, htn, likely multiple myeloma (undiagnosed), and compression fractures who presents to the ER after a fall at home. Xrays showed a distal clavicle fx. a/p left displaced distal clavicle fx No surgical intervention sling for comfort f/u in the office in 2 weeks d/w Dr. Bowser
[2019-01-10] MEDS ORDERED: FENTANYL PATCH WASTE TD PRN (12:01)
[2019-01-10] MEDS ORDERED: fentaNYL 12mcg/hr PATCH.TD72 TD SCH (12:15)
--- NOTE | 2019-01-10 12:28 | PN ---
Progress Note, Physician History of Present Illness: Pt seen and examined at bedside. She is awake and alert. She still gets bone pain. - Objective Vital Signs: Vital Signs Temperature 98.6 F 01/10/19 05:29 Pulse Rate 78 01/10/19 05:29 Respiratory Rate 20 01/10/19 09:00 Blood Pressure 110/54 L 01/10/19 05:29 O2 Sat by Pulse Oximetry (%) 97 01/09/19 21:00 Constitutional: Yes: Calm Eyes: Yes: Conjunctiva Clear HENT: Yes: Atraumatic Neck: Yes: Supple Cardiovascular: Yes: S1, S2 Respiratory: Yes: CTA Bilaterally Gastrointestinal: Yes: Soft Genitourinary: Yes: WNL Musculoskeletal: Yes: WNL Extremities: Yes: WNL Edema: Yes Edema: LLE: Trace, RLE: Trace Neurological: Yes: Oriented Psychiatric: Yes: Oriented Labs: CBC, BMP 01/10/19 05:35 01/10/19 05:35 INR, PTT INR 1.24 (0.83-1.09) H 01/09/19 13:32 Assessment/Plan Impression 1. CKD 2. anemia 3. HTN 4. GERD 5. fatigue 6. back pain r/o compression fracture 7. r/o myeloma - elevated lambda chains Plan - will need outpt follow up - discussed case with her son at length. they do not want to workup the myeloma. - cont procrit - discussed with family - renal diet
== END 2019-01-10 12:23 | disposition home or self-care (01) | DRG 691 ==
LOC: JER 12:23 → JERBED 14:10 → J4W 18:54
PROVIDERS: ADMIT Family Medicine; ATTEND Family Medicine
PROC: 30233N1 Transfusion of Nonautologous Red Blood Cells into Peripheral Vein, Percutaneous Approach (ICD-10-PCS; principal; 2019-01-09)
DX: C90.00 Multiple myeloma not having achieved remission (principal); D64.9 Anemia, unspecified; I45.10 Unspecified right bundle-branch block; S40.012A Contusion of left shoulder, initial encounter; K21.9 Gastro-esophageal reflux disease without esophagitis; S42.032A Displaced fracture of lateral end of left clavicle, initial encounter for closed fracture; I12.9 Hypertensive chronic kidney disease with stage 1 through stage 4 chronic kidney disease, or unspecified chronic kidney disease; N18.9 Chronic kidney disease, unspecified; I48.0 Paroxysmal atrial fibrillation; W18.39XA Other fall on same level, initial encounter; Y92.098 Other place in other non-institutional residence as the place of occurrence of the external cause
CPT/HCPCS: 36415; 36430; 36511; 70450-TC; 71045-TC-FY; 73030-TC-LT-FY; 80053; 82550; 82962; 83735; 84436; 84443; 84484; 85025; 85610; 86850; 86900; 86901; 86922; 93005; 93010; 99285-25; J0131; J0885; P9038; P9058